=== PATIENT | male | born 1965 | race African-American/Black ===

== ENCOUNTER 2016-07-26 07:48 | Inpatient (IN) | payer MEDICARE, MEDICAID ==
[2016-07-26] MEDS ORDERED: FAMOTIDINE INJ/PF 20 MG/2 ML SDV IV ONE (08:02)
[2016-07-26] MEDS ORDERED: DIPHENHYDRAMINE HCL 50 MG/ML VIAL IV ONE (08:02)
[2016-07-26] MEDS ORDERED: METHYLPREDNISOLONE INJ 125 MG/2 ML SDV IV ONE (08:02)
[2016-07-26] MEDS ORDERED: NORMAL SALINE 1000 ML 1,000 ML IV ONE (08:03)
[2016-07-26] MEDS ORDERED: TRANEXAMIC ACID INJ/PF 1,000 MG/10 ML SDV IV PRN (08:41)
[2016-07-26 08:42] LABS: ABSOLUTE EOSINOPHILS # (AUTO) 0.1 10^3/uL (0.0-0.6); ABSOLUTE LYMPHOCYTES (AUTO) 2.5 10^3/uL (0.5-4.7); ABSOLUTE MONOCYTES (AUTO) 0.5 10^3/uL (0.1-1.4); ABSOLUTE NEUT (AUTO) 3.4 10^3/uL (1.7-8.2); BASOPHILS % (AUTO) 0.5 % (0-2); EOSINOPHILS % (AUTO) 2.1 % (0-6); HEMATOCRIT 41.5 % (37.9-51.0); HEMOGLOBIN 14.2 g/dL (13.5-17.0); HGB HCT DIFFERENCE 1.1; LYMPHOCYTES % (AUTO) 37.9 % (13-45); MEAN CORPUSCULAR HEMOGLOBIN 33.3 pg (27.0-33.4); MEAN CORPUSCULAR HGB CONC 34.2 g/dL (32.0-36.0); MEAN CORPUSCULAR VOLUME 97 fl (80-97); MONOCYTES % (AUTO) 7.5 % (3-13); RED BLOOD COUNT 4.26 10^6/uL (4.35-5.55); RED CELL DISTRIBUTION WIDTH 12.9 % (11.5-14.0); WHITE BLOOD COUNT 6.5 10^3/uL (4.0-10.5)
[2016-07-26] MEDS ORDERED: NORMAL SALINE 250 ML IV PRN ×3 (08:42→09:26)
[2016-07-26 08:50] LABS: PROTHROMBIN TIME 12.7 SEC (11.4-15.4)
--- NOTE | 2016-07-26 08:50 | ER Document Report ---
ED General - General Chief Complaint: Allergic Reaction Stated Complaint: POSSIBLE ALLEGIC REACTION TRAVEL OUTSIDE OF THE [place] 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 Patient has had intubations in the past because of the angioedema due to tongue swelling. Patient denies any recent or new medications. States he is currently on antihistamine and Singulair. Patient denies ever being on lisinopril. Upon evaluation patient does have a multiple voice. Patient is able to stick out stone I am not able to see tonsillar pillars are the arch of the soft palate uvula is obscured by the tongue but swelling is only unilateral right side. Patient states he is able to control his secretions. Pain with swelling started prior to arrival. Denies shortness of breath denies fevers - Related Data Allergies/Adverse Reactions: aluminum hydroxide [From Bufferin] Allergy (Verified 08/09/15 10:06) aspirin [Aspirin] Allergy (Verified 08/09/15 10:06) calcium carbonate [From Bufferin] Allergy (Verified 08/09/15 10:06) Coconut * [Coconut] Allergy (Verified 08/09/15 10:06) ibuprofen Allergy (Verified 08/09/15 10:06) latex [Latex] Allergy (Verified 08/09/15 10:06) Magnesium [From Bufferin] Allergy (Verified 08/09/15 10:06) peanut [Peanut] Allergy (Verified 08/09/15 10:06) Shellfish * [Shellfish] Allergy (Verified 08/09/15 10:06) Home Medications: Current Home Medications Benztropine Mesylate [Benztropine Mesylate 2 mg Tablet] 2 mg PO DAILY 07/26/16 [ History] Cetirizine HCl [Zyrtec 10 mg Tablet] 1 tab PO DAILY 07/26/16 [History] Citalopram Hydrobromide [Celexa 20 mg Tablet] 20 mg PO DAILY 07/26/16 [History] Haloperidol [Haldol 5 mg Tablet] 5 mg PO DAILY 07/26/16 [History] Montelukast Sodium 10 mg PO DAILY 07/26/16 [History] Olopatadine HCl [Pataday] 2.5 ml OP DAILYP PRN 07/26/16 [History] Past Medical History - Social History Smoking Status: Current Every Day Smoker Chew tobacco use (# tins/day): No Frequency of alcohol use: None Drug Abuse: None Family History: Reviewed & Not Pertinent Psychiatric Medical History: Reports: Hx Depression, Hx Schizophrenia Past Surgical History: Reports: Hx Tonsillectomy - Immunizations Immunizations up to date: Yes Hx Diphtheria, Pertussis, Tetanus Vaccination: Yes Hx Pneumococcal Vaccination: 04/16/00 Review of Systems - Review of Systems Constitutional: No symptoms reported EENT: Other - Tongue swelling Cardiovascular: No symptoms reported Respiratory: No symptoms reported Gastrointestinal: No symptoms reported Genitourinary: No symptoms reported Male Genitourinary: No symptoms reported Musculoskeletal: No symptoms reported Skin: No symptoms reported Hematologic/Lymphatic: No symptoms reported Neurological/Psychological: No symptoms reported -: Yes All other systems reviewed and negative Physical Exam - Vital signs Vitals: Pulse Resp Pulse Ox 81 21 H 99 07/26/16 08:12 07/26/16 08:12 07/26/16 08:12 Interpretation: Normal - General General appearance: Appears well, Alert - HEENT Head: Normocephalic, Atraumatic Eyes: Normal Conjunctiva: Normal Cornea: Normal Pupils: PERRL Ears: Normal Tympanic membrane: Normal Sinus: Normal Nasal: Normal Mouth/Lips: Other - Right-sided tongue swelling Pharynx: Other - Posterior pharynx is difficult to visualize at this time. did use a small tongue blade can see the uvula is no signs of edema. However patient has mallampti score of 3-4 - Respiratory Respiratory status: No respiratory distress Chest status: Nontender Breath sounds: Normal Chest palpation: Normal - Cardiovascular Rhythm: Regular Heart sounds: Normal auscultation Murmur: No - Abdominal Inspection: Normal Distension: No distension Bowel sounds: Normal Tenderness: Nontender Organomegaly: No organomegaly - Back Back: Normal, Nontender - Extremities General upper extremity: Normal inspection, Nontender, Normal color, Normal ROM , Normal temperature General lower extremity: Normal inspection, Nontender, Normal color, Normal ROM , Normal temperature, Normal weight bearing. No: Ross's sign - Neurological Neuro grossly intact: Yes Cognition: Normal Orientation: AAOx4 [place] Coma Scale Eye Opening: Spontaneous Jennifer Coma Scale Verbal: Oriented [place] Coma Scale Motor: Obeys Commands [place] Coma Scale Total: 15 Speech: Normal Motor strength normal: LUE, RUE, LLE, RLE Sensory: Normal - Psychological Associated symptoms: Normal affect, Normal mood - Skin Skin Temperature: Warm Skin Moisture: Dry Skin Color: Normal Course - Re-evaluation Re-evalutation: 07/26/16 08:46 Patient coming in today for angioedema. During his short ER stay here patient has unilateral swelling to the right side of the tongue did worsen anesthesia was called and evaluated for possible intubation. Anesthesiologist at bedside states no patient's while last time received FFP and transexemic acid with improvement however patient is continue with intubation. Also states last time patient was intubated in the OR. Currently trying to contact her hospitalist as there are phone system does not work. Hospitalist was paged overhead. 07/26/16 08:58 Hospitalist is at the bedside. Anesthesia team states that at this time they would not intubate patient would like to see if the medications and medical therapy provided will resolve the patient's symptoms. 07/26/16 09:01 07/26/16 10:34 07/26/16 14:16 Patient transferred to the ICU - Vital Signs Vital signs: Temp Pulse Resp BP Pulse Ox 98.7 F 80 16 142/88 H 98 07/26/16 11:42 07/26/16 11:42 07/26/16 11:42 07/26/16 11:42 07/26/16 11:42 - Laboratory Result Diagrams: 07/26/16 08:25 07/26/16 08:25 Laboratory results interpreted by me: 07/26/16 07/26/16 08:25 08:25 RBC 4.26 L Sodium 145.4 H Chloride 108 H Discharge - Discharge Clinical Impression: Tongue swelling, Hereditary angioedema Condition: Good Disposition: HOME, SELF-CARE Admitting Provider: [place] [facility] Unit Admitted: ICU
[2016-07-26 08:51] LABS: PARTIAL THROMBOPLASTIN TIME 25.1 SEC (23.5-35.8)
[2016-07-26] MEDS ORDERED: RACEPINEPHRINE HCL 2.25% NEB 0.5 ML AMPUL NEB ONE ×2 (08:55)
[2016-07-26 09:06] LABS: ALANINE AMINOTRANSFERASE 41 U/L (21-72); ALBUMIN 4.5 g/dL (3.5-5.0); ALKALINE PHOSPHATASE 68 U/L (38-126); ANION GAP 10 (5-19); ASPARTATE AMINO TRANSFERASE 40 U/L (17-59); BILIRUBIN,DIRECT 0.2 mg/dL (0.0-0.4); BILIRUBIN,TOTAL 0.6 mg/dL (0.2-1.3); CALCIUM 9.7 mg/dL (8.4-10.2); CARBON DIOXIDE 27 mmol/L (22-30); CHLORIDE 108 mmol/L (98-107); CREATININE RESULT 0.89 mg/dL (0.52-1.25); GLUCOSE 96 mg/dL (75-110); LIPASE 62.3 U/L (23-300); SODIUM 145.4 mmol/L (137-145); TOTAL PROTEIN 7.9 g/dL (6.3-8.2)
[2016-07-26 09:15] LABS: BLOOD UREA NITROGEN 12 mg/dL (7-20)
--- NOTE | 2016-07-26 10:09 | PDOC H&P ---
History of Present Illness Admission Date/PCP: 07/26/16 09:39 CANDIE RICHARDSON MD [facility] [facility] Patient complains of: "Swelling of the tongue and feeling pills stuck in the throat since 7:30 AM" History of Present Illness: SHANNAN CASTLE is a 51 year old male With a past history of recurrent angioedema presented to the ED with a swollen tongue and some hoarseness of is always Patient had prior episodes and prior intubation; is currently followed by Dr. Nunez in [place]; and has been treated for hereditary angioedema Mother states that since his treatment was initiated rate recurrent episodes has decreased Upon initial evaluation patient has swelling of this neck, mild swelling of the right side of his tongue He can talk but his speech is a little difficult; he manages his saliva and has no stridor Anesthesia was consulted; and it was felt that at this stage patient will be treated medically and watched closely Intubation was to be deferred Surgical consult was obtained Past Medical History GI Medical History: Reports: Gastroesophageal Reflux Disease Psychiatric Medical History: Reports: Depression, Other - Schizophrenia Past Surgical History Past Surgical History: Reports: Tonsillectomy Social History Smoking Status: Current Every Day Smoker Frequency of Alcohol Use: Occasional Hx Recreational Drug Use: No - unknown Drugs: None Hx Prescription Drug Abuse: No - Advance Directive Resuscitation Status: Full Code Surrogate healthcare decision maker:: Mother Family History Family History: Reviewed & Not Pertinent Parental Family History Reviewed: Yes Children Family History Reviewed: Yes Sibling(s) Family History Reviewed.: Yes Medication/Allergy Home Medications: Citalopram Hydrobromide [Celexa 10 mg Tablet] 10 mg PO DAILY 09/03/11 Haloperidol [Haldol 5 mg Tablet] 5 mg PO DAILY 09/03/11 Epinephrine [Epipen 2-Darinel] 0.3 mg IM ASDIR PRN #1 kit 07/19/15 Haloperidol Decanoate [Haldol Decan (Monthly) 100 mg/ml Inj 1 ml] 100 mg IM [id number] 08/04/15 Diphenhydramine HCl [Benadryl] 25 mg PO QHS #30 capsule 08/10/15 Famotidine [Pepcid 20 mg Tablet] 20 mg PO BID #60 tablet 08/10/15 Montelukast Sodium [Singulair 10 mg Tablet] 10 mg PO QHS #30 tablet 08/10/15 Prednisone 20 mg PO ASDIR PRN #50 tablet 08/10/15 Allergies/Adverse Reactions: aluminum hydroxide [From Bufferin] Allergy (Verified 08/09/15 10:06) aspirin [Aspirin] Allergy (Verified 08/09/15 10:06) calcium carbonate [From Bufferin] Allergy (Verified 08/09/15 10:06) Coconut * [Coconut] Allergy (Verified 08/09/15 10:06) ibuprofen Allergy (Verified 08/09/15 10:06) latex [Latex] Allergy (Verified 08/09/15 10:06) Magnesium [From Bufferin] Allergy (Verified 08/09/15 10:06) peanut [Peanut] Allergy (Verified 08/09/15 10:06) Shellfish * [Shellfish] Allergy (Verified 08/09/15 10:06) Review of Systems Constitutional: ABSENT: chills, fever(s), headache(s), weight gain, weight loss Eyes: ABSENT: visual disturbances Ears: ABSENT: hearing changes Nose, Mouth, and Throat: PRESENT: as per HPI Cardiovascular: ABSENT: chest pain, dyspnea on exertion, edema, orthropnea, palpitations Respiratory: ABSENT: cough, hemoptysis Gastrointestinal: ABSENT: abdominal pain, constipation, diarrhea, hematemesis, hematochezia, nausea, vomiting Genitourinary: ABSENT: dysuria, hematuria Musculoskeletal: ABSENT: joint swelling Integumentary: PRESENT: other - Swelling of the face neck Neurological: ABSENT: abnormal gait, abnormal speech, confusion, dizziness, focal weakness, syncope Psychiatric: ABSENT: anxiety, depression, homidical ideation, suicidal ideation Endocrine: ABSENT: cold intolerance, heat intolerance, polydipsia, polyuria Hematologic/Lymphatic: ABSENT: easy bleeding, easy bruising Allergic/Immunologic: PRESENT: as per HPI Physical Exam Vital Signs: Temp Pulse Resp BP Pulse Ox 98 07/26/16 08:52 General appearance: PRESENT: no acute distress, well-developed, well-nourished Head exam: PRESENT: atraumatic, normocephalic Eye exam: PRESENT: conjunctiva pink, EOMI, PERRLA. ABSENT: scleral icterus Ear exam: PRESENT: normal external ear exam Mouth exam: PRESENT: moist, tongue midline, other - edema right side of the tongue Edema of the lips Neck exam: PRESENT: other - Edema of the neck Swelling submandibular areas. ABSENT: carotid bruit, JVD, lymphadenopathy, thyromegaly Respiratory exam: PRESENT: clear to auscultation gonsalo. ABSENT: rales, rhonchi, wheezes Cardiovascular exam: PRESENT: RRR. ABSENT: diastolic murmur, rubs, systolic murmur Pulses: PRESENT: normal dorsalis pedis pul Vascular exam: PRESENT: normal capillary refill GI/Abdominal exam: PRESENT: normal bowel sounds, soft. ABSENT: distended, guarding, mass, organolmegaly, rebound, tenderness Rectal exam: PRESENT: deferred Extremities exam: PRESENT: full ROM. ABSENT: calf tenderness, clubbing, pedal edema Neurological exam: PRESENT: alert, awake, oriented to person, oriented to place , oriented to time, oriented to situation, CN II-XII grossly intact. ABSENT: motor sensory deficit Psychiatric exam: PRESENT: appropriate affect, normal mood. ABSENT: homicidal ideation, suicidal ideation Skin exam: PRESENT: dry, intact, warm. ABSENT: cyanosis, rash Results Laboratory Results: Labs- All tests 24 hr 07/26/16 07/26/16 07/26/16 08:25 08:25 08:25 WBC 6.5 RBC 4.26 L Hgb 14.2 Hct 41.5 MCV 97 MCH 33.3 MCHC 34.2 RDW 12.9 Plt Count 360 Seg Neutrophils % 52.0 Lymphocytes % 37.9 Monocytes % 7.5 Eosinophils % 2.1 Basophils % 0.5 Absolute Neutrophils 3.4 Absolute Lymphocytes 2.5 Absolute Monocytes 0.5 Absolute Eosinophils 0.1 Absolute Basophils 0.0 PT 12.7 INR 0.92 APTT 25.1 Sodium 145.4 H Potassium 4.0 Chloride 108 H Carbon Dioxide 27 Anion Gap 10 BUN 12 Creatinine 0.89 Est GFR ( Amer) > 60 Est GFR (Non-Af Amer) > 60 Glucose 96 Calcium 9.7 Total Bilirubin 0.6 Direct Bilirubin 0.2 Indirect Bilirubin Not Reportable Neonat Total Bilirubin Not Reportable AST 40 ALT 41 Alkaline Phosphatase 68 Total Protein 7.9 Albumin 4.5 Lipase 62.3 Blood Type Antibody Screen 07/26/16 09:05 WBC RBC Hgb Hct MCV MCH MCHC RDW Plt Count Seg Neutrophils % Lymphocytes % Monocytes % Eosinophils % Basophils % Absolute Neutrophils Absolute Lymphocytes Absolute Monocytes Absolute Eosinophils Absolute Basophils PT INR APTT Sodium Potassium Chloride Carbon Dioxide Anion Gap BUN Creatinine Est GFR ( Amer) Est GFR (Non-Af Amer) Glucose Calcium Total Bilirubin Direct Bilirubin Indirect Bilirubin Neonat Total Bilirubin AST ALT Alkaline Phosphatase Total Protein Albumin Lipase Blood Type Cancelled Antibody Screen Cancelled Assessment & Plan - Diagnosis (1) Hereditary angioedema Is this a current diagnosis for this admission?: Yes (2) Tongue swelling Is this a current diagnosis for this admission?: Yes - Time Time Spent with patient: Patient was treated with conventional medication for insurance angioedema including racemic epinephrine steroids and Benadryl Pepcid He was also given Transiminic acid and 2 units of FFP He remains stable at this time Anesthesia consult was obtained and they felt that we should defer intubation Surgical consult with was obtained that he be ready to perform tracheostomy if emergency occured Patient was admitted to intensive care unit Time Spent: Greater than 70 Minutes - Inpatient Certification Based on my medical assessment, after consideration of the patient's comorbidities, presenting symptoms, or acuity I expect that the services needed warrant INPATIENT care.: Yes I certify that my determination is in accordance with my understanding of Medicare's requirements for reasonable and necessary INPATIENT services [42 CFR 412.3e].: Yes Medical Necessity: Need Close Monitoring Due to Risk of Patient Decompensation, Need For Continuous Telemetry Monitoring, Risk of Complication if Not Cared For in Hospital
[2016-07-26] MEDS ORDERED: TRANEXAMIC ACID INJ/PF 1,000 MG/10 ML SDV IV SCH (10:15)
[2016-07-26] MEDS ORDERED: METHYLPREDNISOLONE INJ 125 MG/2 ML SDV IV SCH (12:00)
--- NOTE | 2016-07-26 13:48 | CONSULTATION REPORT E ---
Consultation Report NAME: SHANNAN CASTLE : 1965 AGE: 51Y DATE: 07/26/2016 610 A TO: TALI VALDERRAMA M.D. FROM: Requesting Physician REASON FOR CONSULTATION: Patient with angioedema of the tongue. Medicine requests standby for possible tracheostomy. HISTORY: This is a 51-year-old male with recurrent angioedema. The last episode was about 2 years ago where he needed to be intubated. He has a strong hereditary angioedema history and is being followed by Dr. Nunez in [place]. Mother claims that since his treatment was initiated, these recurrent episodes have decreased. PAST HISTORY: 1. History of recurrent angioedema of the tongue. 2. GERD. 3. History of depression. 4. Schizophrenia. PAST SURGICAL HISTORY: Tonsillectomy. SOCIAL HISTORY: Every day smoker, occasional ethanol use. No history of recreational drug use. FAMILY HISTORY: Positive for hereditary angioedema. MEDICATIONS: Multiple medications at home, as was listed in his chart. ALLERGIES: MULTIPLE ALLERGIES: 1. ASPIRIN. 2. ALUMINUM HYDROXIDE. 3. COCONUT. 4. IBUPROFEN. 5. LATEX. 6. PEANUT ALLERGY. 7. SHELLFISH. REVIEW OF SYSTEMS: GENERAL: As in HPI. Denies any chills, fever, headaches. No visual problems. No hearing problems. HEENT: As in HPI. Patient has some difficulty swallowing pills and has some difficulty saying words at this time. RESPIRATORY: No cough. No hemoptysis. GASTROINTESTINAL: No diarrhea. No constipation. GENITOURINARY: No dysuria. MUSCULOSKELETAL: No joint swelling. INTEGUMENTARY: Swelling of the right side of the face. NEUROLOGIC: No confusion or dizziness. PSYCHIATRIC: Absent anxiety or depression. ENDOCRINE: No heat or cold intolerance. No polydipsia. HEMATOLOGIC/LYMPHATIC: No easy bleeding or bruising. ALLERGIES/IMMUNOLOGIC: As in HPI. PHYSICAL EXAMINATION: GENERAL: A well-developed, well-nourished, 51-year-old male, alert and oriented in no apparent acute distress. HEENT: The right side of the tongue is somewhat swollen. NECK: Supple. There is minimal edema of the neck. LUNGS: Clear. HEART: Regular sinus rhythm. ABDOMEN: Soft, nontender. EXTREMITIES: No edema. IMPRESSION: Angioedema that appears to be subsiding at this time. However, we will be available if patient needs emergency tracheostomy. DICTATING PHYSICIAN: TALI VALDERRAMA M.D. [id number] PHY#: [id number] ID: [id number] JOB#: [id number] ACCT: [id number] cc:TALI VALDERRAMA M.D. >
[2016-07-26] MEDS: FAMOTIDINE INJ/PF 20 MG/2 ML SDV IV SCH ×2 (14:15→21:05)
[2016-07-26] MEDS: DIPHENHYDRAMINE HCL 50 MG/ML VIAL IV SCH ×2 (14:57→20:48)
[2016-07-26] MEDS: METHYLPREDNISOLONE INJ 125 MG/2 ML SDV IV SCH ×2 (14:57→20:48)
[2016-07-26] MEDS: TRANEXAMIC ACID INJ/PF 1,000 MG/10 ML SDV IV SCH ×2 (14:57→20:49)
[2016-07-27] MEDS: DIPHENHYDRAMINE HCL 50 MG/ML VIAL IV SCH ×2 (02:26→09:02)
[2016-07-27] MEDS: METHYLPREDNISOLONE INJ 125 MG/2 ML SDV IV SCH ×2 (02:26→09:02)
[2016-07-27] MEDS: TRANEXAMIC ACID INJ/PF 1,000 MG/10 ML SDV IV SCH ×2 (02:27→09:02)
[2016-07-27 07:34] LABS: COMPLEMENT C4 30 mg/dL (14-44)
[2016-07-27] MEDS: FAMOTIDINE INJ/PF 20 MG/2 ML SDV IV SCH (09:02)
[2016-07-27 11:08] VITALS: BP 132/72
[2016-07-27 14:41] LABS: COMPLEMENT TOTAL (CH50) >60 U/mL (42-60)
[2016-07-28 08:57] LABS: C1 ESTERASE INHIBITOR 34 mg/dL (21-39)
--- NOTE | 2016-07-29 16:54 | PDOC DISCHARGE SUMMARY ---
General - Admit/Disc Date/PCP Admission Date/Primary Care Provider: 07/26/16 09:14 CANDIE RICHARDSON MD Discharge Date: 07/27/16 - Discharge Diagnosis (1) Hereditary angioedema Is this a current diagnosis for this admission?: Yes (2) Tongue swelling Is this a current diagnosis for this admission?: Yes - Additional Information Resuscitation Status: Full Code Discharge Diet: As Tolerated Discharge Activity: Activity As Tolerated Home Medications: Benztropine Mesylate [Benztropine Mesylate 2 mg Tablet] 2 mg PO QHS 07/26/16 Cetirizine HCl [Zyrtec 10 mg Tablet] 1 tab PO DAILY 07/26/16 Citalopram Hydrobromide [Celexa 20 mg Tablet] 20 mg PO BID 07/26/16 Haloperidol Decanoate [Haldol Decan (Monthly) 100 mg/ml Inj 1 ml] 50 mg IM [id number] 07/26/16 Haloperidol [Haldol 5 mg Tablet] 5 mg PO DAILY 07/26/16 Montelukast Sodium [Singulair 10 mg Tablet] 10 mg PO DAILY 07/26/16 Diphenhydramine HCl [Benadryl] 50 mg PO Q4H PRN #30 capsule 07/27/16 Famotidine [Pepcid 40 mg Tablet] 40 mg PO PRN PRN #10 tablet 07/27/16 Prednisone 60 mg PO DAILY #30 tablet 07/27/16 History of Present Illness Patient complains of: swelling toongue , fullness throat History of Present Illness: SHANNAN CASTLE is a 51 year old male With a past history of recurrent angioedema presented to the ED with a swollen tongue and some hoarseness of is always Patient had prior episodes and prior intubation; is currently followed by Dr. Nunez in [place]; and has been treated for hereditary angioedema Mother states that since his treatment was initiated rate recurrent episodes has decreased Upon initial evaluation patient has swelling of this neck, mild swelling of the right side of his tongue He can talk but his speech is a little difficult; he manages his saliva and has no stridor Anesthesia was consulted; and it was felt that at this stage patient will be treated medically and watched closely Intubation was to be deferred Surgical consult was obtained Hospital Course Hospital Course: Patient was treated with epinephrine, steroids , benadryl , pepcid Racemic epinephrine , 2 units FFP and Tranexamic acid 1 g IV were also administered Swelling resolved Patient was discharged next morning totally asymptomatic Physical Exam Vital Signs: Temp Pulse Resp BP Pulse Ox 98.2 F 75 18 132/72 H 99 07/27/16 11:05 07/27/16 11:05 07/27/16 11:05 07/27/16 11:05 07/27/16 11:05 Intake & Output 07/28/16 07/29/16 07/30/16 00:59 00:59 00:59 Intake Total 951 Output Total 0 Balance 951 General appearance: PRESENT: no acute distress, well-developed, well-nourished Head exam: PRESENT: atraumatic, normocephalic Eye exam: PRESENT: conjunctiva pink, EOMI, PERRLA. ABSENT: scleral icterus Ear exam: PRESENT: normal external ear exam Mouth exam: PRESENT: moist, tongue midline Neck exam: ABSENT: carotid bruit, JVD, lymphadenopathy, thyromegaly Respiratory exam: PRESENT: clear to auscultation gonsalo. ABSENT: rales, rhonchi, wheezes Cardiovascular exam: PRESENT: RRR. ABSENT: diastolic murmur, rubs, systolic murmur Pulses: PRESENT: normal dorsalis pedis pul Vascular exam: PRESENT: normal capillary refill GI/Abdominal exam: PRESENT: normal bowel sounds, soft. ABSENT: distended, guarding, mass, organolmegaly, rebound, tenderness Rectal exam: PRESENT: deferred Extremities exam: PRESENT: full ROM. ABSENT: calf tenderness, clubbing, pedal edema Neurological exam: PRESENT: alert, awake, oriented to person, oriented to place , oriented to time, oriented to situation, CN II-XII grossly intact. ABSENT: motor sensory deficit Psychiatric exam: PRESENT: appropriate affect, normal mood. ABSENT: homicidal ideation, suicidal ideation Skin exam: PRESENT: dry, intact, warm. ABSENT: cyanosis, rash Results Laboratory Results: 07/26/16 08:25 07/26/16 08:25 Blood Type A POSITIVE 07/26/16 09:45 Antibody Screen NEGATIVE 07/26/16 09:45 MCV 97 fl (80-97) 07/26/16 08:25 MCH 33.3 pg (27.0-33.4) 07/26/16 08:25 MCHC 34.2 g/dL (32.0-36.0) 07/26/16 08:25 RDW 12.9 % (11.5-14.0) 07/26/16 08:25 Seg Neutrophils % 52.0 % (42-78) 07/26/16 08:25 Lymphocytes % 37.9 % (13-45) 07/26/16 08:25 Monocytes % 7.5 % (3-13) 07/26/16 08:25 Eosinophils % 2.1 % (0-6) 07/26/16 08:25 Basophils % 0.5 % (0-2) 07/26/16 08:25 Absolute Neutrophils 3.4 10^3/uL (1.7-8.2) 07/26/16 08:25 Absolute Lymphocytes 2.5 10^3/uL (0.5-4.7) 07/26/16 08:25 Absolute Monocytes 0.5 10^3/uL (0.1-1.4) 07/26/16 08:25 Absolute Eosinophils 0.1 10^3/uL (0.0-0.6) 07/26/16 08:25 Absolute Basophils 0.0 10^3/uL (0.0-0.2) 07/26/16 08:25 Chloride 108 mmol/L (98-107) H 07/26/16 08:25 Carbon Dioxide 27 mmol/L (22-30) 07/26/16 08:25 Anion Gap 10 (5-19) 07/26/16 08:25 Est GFR ( Amer) > 60 (>60) 07/26/16 08:25 Est GFR (Non-Af Amer) > 60 (>60) 07/26/16 08:25 Glucose 96 mg/dL (75-110) 07/26/16 08:25 Calcium 9.7 mg/dL (8.4-10.2) 07/26/16 08:25 Total Bilirubin 0.6 mg/dL (0.2-1.3) 07/26/16 08:25 AST 40 U/L (17-59) 07/26/16 08:25 ALT 41 U/L (21-72) 07/26/16 08:25 Alkaline Phosphatase 68 U/L (38-126) 07/26/16 08:25 Total Protein 7.9 g/dL (6.3-8.2) 07/26/16 08:25 Albumin 4.5 g/dL (3.5-5.0) 07/26/16 08:25 Lipase 62.3 U/L (23-300) 07/26/16 08:25 Plan Discharge Plan: discharged home instructed to use epi pen and take benadryl 50 mg, prednisone 60 mg and pepcid 40 mg po at once if angioedema reccurs - and call 911- Time Spent: Greater than 30 Minutes
== END 2016-07-27 11:40 | disposition home or self-care (01) | DRG 642 ==
LOC: ER 07:48 → EH 09:14 → UNDOADMIN 09:39 → EH 09:39 → ICU 11:44 → 3N 21:50
PROVIDERS: ADMIT Emergency Medicine; ATTEND Emergency Medicine
PROC: 30233L1 Transfusion of Nonautologous Fresh Plasma into Peripheral Vein, Percutaneous Approach (ICD-10-PCS; principal; 2016-07-26)
DX: D84.1 Defects in the complement system (principal); K21.9 Gastro-esophageal reflux disease without esophagitis; F32.9 Major depressive disorder, single episode, unspecified; F20.9 Schizophrenia, unspecified; F17.210 Nicotine dependence, cigarettes, uncomplicated; Z79.899 Other long term (current) drug therapy; Z88.6 Allergy status to analgesic agent; Z91.040 Latex allergy status; Z91.018 Allergy to other foods; Z88.8 Allergy status to other drugs, medicaments and biological substances; Z91.010 Allergy to peanuts; Z91.013 Allergy to seafood
CPT/HCPCS: 36415; 36430; 80053; 83690; 85025; 85610; 85730; 86160; 86162; 86850; 86900; 86901; 96374; 96375; 99291; C1751; J1200; J2930; J3490; J7030; P9017; S0028

== ENCOUNTER 2016-08-09 00:05 | Emergency (ER) | payer MEDICARE, MEDICAID ==
[2016-08-09] MEDS ORDERED: METHYLPREDNISOLONE INJ 125 MG/2 ML SDV IV ONE (01:08)
[2016-08-09] MEDS ORDERED: FAMOTIDINE INJ/PF 20 MG/2 ML SDV IV ONE (01:08)
[2016-08-09] MEDS ORDERED: EPINEPHRINE INJ/PF 1 MG/1 ML AMPULE IM ONE (01:08)
[2016-08-09] MEDS ORDERED: DIPHENHYDRAMINE HCL 50 MG/ML VIAL IV ONE (01:09)
--- NOTE | 2016-08-09 01:48 | ER Document Report ---
ED Oral Problem - General Chief Complaint: Swelling of Tongue Stated Complaint: TONGUE SWELLING Notes: Patient is a 51-year-old male, past medical history hereditary angioedema, presents with 3 hours of left-sided tongue swelling. 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 He took his cetirizine and noticed that his tongue is decreasing in size. He was started on amoxicillin and Ridge a few days ago after dental procedure, but he has taken this medications in the past. He denies any throat swelling, stridor, nausea, vomiting, rash, difficulty breathing, fevers, chest pain or abdominal pain. TRAVEL OUTSIDE OF THE [place] IN LAST 30 DAYS: No - Related Data Allergies/Adverse Reactions: aluminum hydroxide [From Bufferin] Allergy (Verified 08/09/15 10:06) aspirin [Aspirin] Allergy (Verified 08/09/15 10:06) calcium carbonate [From Bufferin] Allergy (Verified 08/09/15 10:06) Coconut * [Coconut] Allergy (Verified 08/09/15 10:06) ibuprofen Allergy (Verified 08/09/15 10:06) latex [Latex] Allergy (Verified 08/09/15 10:06) Magnesium [From Bufferin] Allergy (Verified 08/09/15 10:06) peanut [Peanut] Allergy (Verified 08/09/15 10:06) Shellfish * [Shellfish] Allergy (Verified 08/09/15 10:06) Past Medical History - Social History Smoking Status: Unknown if Ever Smoked Chew tobacco use (# tins/day): No Frequency of alcohol use: None Drug Abuse: None Family History: Reviewed & Not Pertinent GI Medical History: Reports: Hx Gastroesophageal Reflux Disease Psychiatric Medical History: Reports: Hx Depression, Hx Schizophrenia Past Surgical History: Reports: Hx Tonsillectomy - Immunizations Immunizations up to date: Yes Hx Diphtheria, Pertussis, Tetanus Vaccination: Yes Hx Pneumococcal Vaccination: 04/16/00 Review of Systems - Review of Systems Notes: REVIEW OF SYSTEMS: CONSTITUTIONAL: -fevers, -chills EENT: -eye pain, -difficulty swallowing, -nasal congestion, +left-sided tongue swelling CARDIOVASCULAR:-chest pain, -syncope. RESPIRATORY: -cough, -SOB GASTROINTESTINAL: -abdominal pain, - nausea, -vomiting, -diarrhea GENITOURINARY: -dysuria, -hematuria MUSCULOSKELETAL: -back pain, -neck pain SKIN: -rash or skin lesions. HEMATOLOGIC: -easy bruising or bleeding. LYMPHATIC: -swollen, enlarged glands. NEUROLOGICAL: -altered mental status or loss of consciousness, -headache, - neurologic symptoms PSYCHIATRIC: -anxiety, -depression. ALL OTHER SYSTEMS REVIEWED AND NEGATIVE. Physical Exam - Vital signs Vitals: Temp Pulse Resp BP Pulse Ox 98.5 F 74 16 128/77 H 99 08/09/16 00:12 08/09/16 00:12 08/09/16 00:12 08/09/16 00:12 08/09/16 00:12 - Notes Notes: PHYSICAL EXAMINATION: GENERAL: Well-appearing, well-nourished and in no acute distress. HEAD: Atraumatic, normocephalic. EYES: Pupils equal round and reactive to light, extraocular movements intact, sclera anicteric, conjunctiva are normal. ENT: Mild swelling of the left side of his tongue, nares patent, oropharynx clear without exudates. No swelling of the posterior pharynx and no stridor. Moist mucous membranes. NECK: Normal range of motion, supple without lymphadenopathy LUNGS: Breath sounds clear to auscultation bilaterally and equal. No wheezes rales or rhonchi. HEART: Regular rate and rhythm without murmurs ABDOMEN: Soft, nontender, normoactive bowel sounds. No guarding, no rebound. No masses appreciated. EXTREMITIES: Normal range of motion, no pitting or edema. No cyanosis. NEUROLOGICAL: Cranial nerves grossly intact. Normal speech, normal gait. Normal sensory, motor, and reflex exams. PSYCH: Normal mood, normal affect. SKIN: Warm, Dry, normal turgor, no rashes or lesions noted. Course - Re-evaluation Re-evalutation: Patient rechecked multiple times on the emergency room. After epi, steroids, Benadryl and Pepcid, patient's left-sided tongue swelling has decreased in size. He has had no progression of any swelling while in the emergency room and his airway is still patent. At this time, do not suspect progressive airway edema. He has prednisone at home and is instructed to take daily for the next 5 days and use Benadryl every 6 hours. Given strict return precautions and he understands. - Vital Signs Vital signs: Temp Pulse Resp BP Pulse Ox 98.4 F 74 16 125/77 97 08/09/16 03:25 08/09/16 03:25 08/09/16 03:25 08/09/16 03:25 08/09/16 03:25 Discharge - Discharge Clinical Impression: Mild tongue swelling Condition: Stable Disposition: HOME, SELF-CARE Additional Instructions: ACUTE ALLERGIC REACTION: Your symptoms are due to an allergic reaction. Allergy can cause hives, swelling of the hands, feet, and face, hoarseness, and difficulty swallowing or breathing. It may be due to exposure to medication, animal dander, foods, infection, or insect bites. Medication is a common cause, even when prior use of this same medication caused no problems. Acute treatment may include adrenalin and antihistamines. Usually, the specific allergic agent can't be identified unless repeated episodes occur. Home treatment includes the following: (1) Stop any suspicious medications. This will be discussed with you. (2) Oral antihistamines for the next four to five days. Example, diphenhydramine (Benadryl) every four hours. (3) You may also use cimetidine (Tagamet), ranitidine (Zantac), or famotidine ( Pepcid) every four hours if diphenhydramine is not controlling itching and hives. (4) Avoid aspirin until the hives completely disappear. (5) Avoid hot baths or showers until the hives are completely gone. Call the doctor if faintness, difficulty swallowing, tightness in the chest , or wheezing occurs. EPINEPHRINE: An injection of epinephrine (also called adrenalin) is used to treat allergic reactions, asthma, and some other medical conditions. It is a stimulant medication that consticts blood vessels, relaxes smooth muscles such as in the bronchioles of the lung, elevates blood pressure, and increases heart rate. It can temporarily make you feel very nervous and shakey, but it's affects last only a short time, about 15 to 30 minutes at most. STEROID MEDICATION INJECTION: You have been given an injection of medicine of the cortisone/steroid class. This medication is used to control inflammation or allergy. It is often continued as a pill for a short period of time, until the acute process subsides. There are usually no side effects from short-term use of cortisone-like medications. Some persons feel an increased sense of well-being and are not sleepy at bedtime. Long-term use of cortisone medications is best avoided, unless required for a severe condition. If your condition does not remit, or relapses after the course of corticosteroid medication, you should consult your physician. STEROID MEDICATION: You have been given a medicine of the cortisone/steroid class. This medication is used to control inflammation or allergy. It is usually only given for a short period of time, until the acute process subsides. There are usually no side effects from short-term use of cortisone-like medications. Some persons feel an increased sense of well-being and are not sleepy at bedtime. Long-term use of cortisone medications is best avoided, unless required for a severe condition. If your condition does not remit, or relapses after the course of corticosteroid medication, you should consult your physician. ACID-SUPPRESSING MEDICATION: You have a prescription for medicine which reduces the stomach's secretion of acid. Examples include Zantac, Tagament, and Pepcid. These drugs are often used to allow healing of ulcers or esophagitis. They may be needed to prevent recurrence of ulcers in some patients, or to prevent damage from acid reflux in the esophagus. Take all medication as prescribed, even after the pain is gone. Regular antacids may be added as needed if you have symptoms while taking this medicine. These medications sometimes are prescribed for allergic reactions because they have anti-histaminic effects and relieve the rash and itching of the reaction. There are usually no side effects from this medication. But, in rare cases and particularly in the elderly, serious problems can occur. Contact your doctor if there is fever, rash, hallucinations, confusion, or unusual bruising. Contact your doctor at once if you develop lightheadedness, black or bloody stool, or bloody vomitus. ANTIHISTAMINES: An antihistamine has been given and/or prescribed to control your symptoms. Antihistamines are used for many reasons, including itching, watering eyes, runny nose, allergic swelling, hives, and insect stings. Antihistamines may cause drowsiness, especially with the first dose. Do not operate machinery or drive while under the effects of the medication. Other common side effects include dry mouth and eyes. In older persons, antihistamines can occasionally cause urinary retention, constipation, and trouble focusing the eyes. Do not combine the medication with alcohol, or with any other medication without talking to your doctor. USE OF DIPHENHYDRAMINE: The use of diphenhydramine (Benadryl) has been recommended to control allergic symptoms. The 25 mg strength is available over- the-counter, as well as the elixir. This antihistamine is used for many symptoms. It's useful for itching, watering eyes and nose, allergic swelling, hives, and insect stings. The medication can be repeated four times daily. Age Elixir (12.5 mg/tsp) 25 mg pill 2-3 yr 1/2 tsp 4-8 yr 1 tsp 9-14 yr 2 tsp one tab adult 1-2 tabs Antihistamines may cause drowsiness, especially with the first dose. Do not operate machinery or drive while under the effects of the medication. Do not combine the medication with alcohol, or with any other medication without talking to your doctor. FOLLOW-UP CARE: If you have been referred to a physician for follow-up care, call the physician s office for an appointment as you were instructed or within the next two days. If you experience worsening or a significant change in your symptoms, notify the physician immediately or return to the Emergency Department at any time for re-evaluation. Referrals: CANDIE RICHARDSON MD [Primary Care Provider] - Follow up as needed
[2016-08-09 03:28] VITALS: BP 125/77
== END 2016-08-09 03:28 | disposition home or self-care (01) ==
LOC: ER 00:05
DX: R22.0 Localized swelling, mass and lump, head (principal); K21.9 Gastro-esophageal reflux disease without esophagitis; Z91.040 Latex allergy status; Z88.6 Allergy status to analgesic agent; Z91.010 Allergy to peanuts; Z91.013 Allergy to seafood
CPT/HCPCS: 99283; 96372; 96374; 96375; J1200; J0171; J2930; S0028

== ENCOUNTER 2017-03-10 08:56 | Emergency (ER) | payer MEDICARE, MEDICAID ==
[2017-03-10] MEDS ORDERED: METHYLPREDNISOLONE INJ 125 MG/2 ML SDV IV ONE (09:17)
[2017-03-10] MEDS ORDERED: FAMOTIDINE INJ/PF 20 MG/2 ML SDV IV ONE (09:17)
[2017-03-10] MEDS ORDERED: DIPHENHYDRAMINE HCL 50 MG/ML VIAL IV ONE (09:17)
[2017-03-10] MEDS ORDERED: NORMAL SALINE 1000 ML 1,000 ML IV ONE (09:18)
--- NOTE | 2017-03-10 09:45 | ER Document Report ---
ED Allergic Reaction - General Chief Complaint: Allergic Reaction Stated Complaint: POSSIBLE ALLERGIC REACTION Time Seen by Provider: 03/10/17 09:17 Notes: The patient is a 51-year-old male, past medical history hereditary angioedema, schizophrenia, presents after feeling like his posterior pharynx is swelling and he is having mild tongue swelling. He used his EpiPen and call 911. EMS provided him with another dose of IM epinephrine and he feels much better. Patient follows at [facility] said that his prior angioedema events are much less common. He takes Haldol with Cogentin and denies any new medications , new foods, difficulty swallowing, stridor, shortness of breath, nausea, vomiting, rash, abdominal pain or headache. TRAVEL OUTSIDE OF THE [place] IN LAST 30 DAYS: No - Related Data Allergies/Adverse Reactions: aluminum hydroxide [From Bufferin] Allergy (Verified 03/10/17 09:15) aspirin [Aspirin] Allergy (Verified 03/10/17 09:15) calcium carbonate [From Bufferin] Allergy (Verified 03/10/17 09:15) Coconut * [Coconut] Allergy (Verified 03/10/17 09:15) ibuprofen Allergy (Verified 03/10/17 09:15) latex [Latex] Allergy (Verified 03/10/17 09:15) Magnesium [From Bufferin] Allergy (Verified 03/10/17 09:15) peanut [Peanut] Allergy (Verified 03/10/17 09:15) Shellfish * [Shellfish] Allergy (Verified 03/10/17 09:15) Past Medical History - General Information source: Patient - Social History Smoking Status: Current Every Day Smoker Chew tobacco use (# tins/day): No Family History: Reviewed & Not Pertinent Patient has suicidal ideation: No Patient has homicidal ideation: No Renal/ Medical History: Denies: Hx Peritoneal Dialysis GI Medical History: Reports: Hx Gastroesophageal Reflux Disease Psychiatric Medical History: Reports: Hx Depression, Hx Schizophrenia Past Surgical History: Reports: Hx Tonsillectomy - Immunizations Immunizations up to date: Yes Hx Diphtheria, Pertussis, Tetanus Vaccination: Yes Hx Pneumococcal Vaccination: 04/16/00 Review of Systems - Review of Systems Notes: REVIEW OF SYSTEMS: CONSTITUTIONAL: -fevers, -chills EENT: -eye pain, -difficulty swallowing, -nasal congestion CARDIOVASCULAR:-chest pain, -syncope. RESPIRATORY: -cough, -SOB GASTROINTESTINAL: -abdominal pain, -nausea, -vomiting, -diarrhea GENITOURINARY: -dysuria, -hematuria MUSCULOSKELETAL: -back pain, -neck pain SKIN: -rash or skin lesions. HEMATOLOGIC: -easy bruising or bleeding. LYMPHATIC: -swollen, enlarged glands. NEUROLOGICAL: -altered mental status or loss of consciousness, -headache, - neurologic symptoms PSYCHIATRIC: -anxiety, -depression. ALL OTHER SYSTEMS REVIEWED AND NEGATIVE. Physical Exam - Vital signs Vitals: Resp Pulse Ox 21 H 99 03/10/17 09:37 03/10/17 09:37 - Notes Notes: PHYSICAL EXAMINATION: GENERAL: Well-appearing, well-nourished and in no acute distress. HEAD: Atraumatic, normocephalic. EYES: Pupils equal round and reactive to light, extraocular movements intact, sclera anicteric, conjunctiva are normal. ENT: nares patent, oropharynx clear without exudates. Moist mucous membranes. No swelling in oropharynx. NECK: Normal range of motion, supple without lymphadenopathy, no stridor. LUNGS: Breath sounds clear to auscultation bilaterally and equal. No wheezes rales or rhonchi. HEART: Regular rate and rhythm without murmurs ABDOMEN: Soft, nontender, normoactive bowel sounds. No guarding, no rebound. No masses appreciated. EXTREMITIES: Normal range of motion, no pitting or edema. No cyanosis. NEUROLOGICAL: Cranial nerves grossly intact. Normal speech, normal gait. Normal sensory and motor exams. PSYCH: Normal mood, normal affect. SKIN: Warm, Dry, normal turgor, no rashes or lesions noted. Course - Re-evaluation Re-evalutation: On arrival to the ER, patient is currently asymptomatic. His airway is patent and he has no respiratory distress. Pt monitored several hours without return of his symptoms he still asymptomatic. Multiple repeat exams show a patent airway without respiratory distress or stridor. He is requesting discharge home. 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 Given very strict return precautions and he understands. - Vital Signs Vital signs: Temp Pulse Resp BP Pulse Ox 21 H 99 03/10/17 09:37 03/10/17 09:37 Discharge - Discharge Clinical Impression: Angioedema Qualifiers: Encounter type: initial encounter Qualified Code(s): T78.3XXA - Angioneurotic edema, initial encounter Condition: Good Disposition: HOME, SELF-CARE Additional Instructions: ACUTE ALLERGIC REACTION: Your symptoms are due to an allergic reaction. Allergy can cause hives, swelling of the hands, feet, and face, hoarseness, and difficulty swallowing or breathing. It may be due to exposure to medication, animal dander, foods, infection, or insect bites. Medication is a common cause, even when prior use of this same medication caused no problems. Acute treatment may include adrenalin and antihistamines. Usually, the specific allergic agent can't be identified unless repeated episodes occur. Home treatment includes the following: (1) Stop any suspicious medications. This will be discussed with you. (2) Oral antihistamines for the next four to five days. Example, diphenhydramine (Benadryl) every four hours. (3) You may also use cimetidine (Tagamet), ranitidine (Zantac), or famotidine ( Pepcid) every four hours if diphenhydramine is not controlling itching and hives. (4) Avoid aspirin until the hives completely disappear. (5) Avoid hot baths or showers until the hives are completely gone. Call the doctor if faintness, difficulty swallowing, tightness in the chest , or wheezing occurs. EPINEPHRINE: An injection of epinephrine (also called adrenalin) is used to treat allergic reactions, asthma, and some other medical conditions. It is a stimulant medication that consticts blood vessels, relaxes smooth muscles such as in the bronchioles of the lung, elevates blood pressure, and increases heart rate. It can temporarily make you feel very nervous and shakey, but it's affects last only a short time, about 15 to 30 minutes at most. STEROID MEDICATION INJECTION: You have been given an injection of medicine of the cortisone/steroid class. This medication is used to control inflammation or allergy. It is often continued as a pill for a short period of time, until the acute process subsides. There are usually no side effects from short-term use of cortisone-like medications. Some persons feel an increased sense of well-being and are not sleepy at bedtime. Long-term use of cortisone medications is best avoided, unless required for a severe condition. If your condition does not remit, or relapses after the course of corticosteroid medication, you should consult your physician. STEROID MEDICATION: You have been given a medicine of the cortisone/steroid class. This medication is used to control inflammation or allergy. It is usually only given for a short period of time, until the acute process subsides. There are usually no side effects from short-term use of cortisone-like medications. Some persons feel an increased sense of well-being and are not sleepy at bedtime. Long-term use of cortisone medications is best avoided, unless required for a severe condition. If your condition does not remit, or relapses after the course of corticosteroid medication, you should consult your physician. ACID-SUPPRESSING MEDICATION: You have a prescription for medicine which reduces the stomach's secretion of acid. Examples include Zantac, Tagament, and Pepcid. These drugs are often used to allow healing of ulcers or esophagitis. They may be needed to prevent recurrence of ulcers in some patients, or to prevent damage from acid reflux in the esophagus. Take all medication as prescribed, even after the pain is gone. Regular antacids may be added as needed if you have symptoms while taking this medicine. These medications sometimes are prescribed for allergic reactions because they have anti-histaminic effects and relieve the rash and itching of the reaction. There are usually no side effects from this medication. But, in rare cases and particularly in the elderly, serious problems can occur. Contact your doctor if there is fever, rash, hallucinations, confusion, or unusual bruising. Contact your doctor at once if you develop lightheadedness, black or bloody stool, or bloody vomitus. ANTIHISTAMINES: An antihistamine has been given and/or prescribed to control your symptoms. Antihistamines are used for many reasons, including itching, watering eyes, runny nose, allergic swelling, hives, and insect stings. Antihistamines may cause drowsiness, especially with the first dose. Do not operate machinery or drive while under the effects of the medication. Other common side effects include dry mouth and eyes. In older persons, antihistamines can occasionally cause urinary retention, constipation, and trouble focusing the eyes. Do not combine the medication with alcohol, or with any other medication without talking to your doctor. USE OF DIPHENHYDRAMINE: The use of diphenhydramine (Benadryl) has been recommended to control allergic symptoms. The 25 mg strength is available over- the-counter, as well as the elixir. This antihistamine is used for many symptoms. It's useful for itching, watering eyes and nose, allergic swelling, hives, and insect stings. The medication can be repeated four times daily. Age Elixir (12.5 mg/tsp) 25 mg pill 2-3 yr 1/2 tsp 4-8 yr 1 tsp 9-14 yr 2 tsp one tab adult 1-2 tabs Antihistamines may cause drowsiness, especially with the first dose. Do not operate machinery or drive while under the effects of the medication. Do not combine the medication with alcohol, or with any other medication without talking to your doctor. FOLLOW-UP CARE: If you have been referred to a physician for follow-up care, call the physician s office for an appointment as you were instructed or within the next two days. If you experience worsening or a significant change in your symptoms, notify the physician immediately or return to the Emergency Department at any time for re-evaluation. Prescriptions: Epinephrine [Epipen 2-Darinel] 0.3 mg IM ONCE PRN #2 unit PRN Reason: Referrals: CANDIE RICHARDSON MD [Primary Care Provider] - Follow up as needed
[2017-03-10 12:03] VITALS: BP 129/88
== END 2017-03-10 12:08 | disposition home or self-care (01) ==
LOC: ER 08:56
DX: T78.3XXA Angioneurotic edema, initial encounter (principal); X58.XXXA Exposure to other specified factors, initial encounter; F17.200 Nicotine dependence, unspecified, uncomplicated; F20.9 Schizophrenia, unspecified; Z88.6 Allergy status to analgesic agent; Z91.040 Latex allergy status; Z91.010 Allergy to peanuts; Z91.013 Allergy to seafood
CPT/HCPCS: 99283; 96361; 96374; 96375; J1200; J2930; J7030; S0028

== ENCOUNTER 2017-09-16 02:27 | Emergency (ER) | payer MEDICARE, MEDICAID ==
[2017-09-16] MEDS ORDERED: EPINEPHRINE INJ/PF 1 MG/1 ML AMPULE IM ONE (02:35)
[2017-09-16] MEDS ORDERED: EPINEPHRINE INJ/PF 1 MG/1 ML AMPULE ONE (02:37)
--- NOTE | 2017-09-16 02:43 | ER Document Report ---
ED General - General Stated Complaint: POSSIBLE ALLERGIC REACTION Time Seen by Provider: 09/16/17 02:32 Notes: Patient is a 52-year-old male with a past medical history of schizophrenia and multiple allergies with associated history of anaphylaxis who presents with left -sided tongue swelling which she states woke him up from sleep. The patient states that he went to bed and felt fine at that time but woke up feeling like his tongue was swollen and contacted 911. He states that he took Benadryl without any improvement. He states that he is a had a history of similar symptoms in the past when he has had allergic reactions particularly to seafood but denies ingestion of any of these substances today. He denies any skin lesions, shortness of breath, difficulty swallowing, lightheadedness, syncope, or abdominal pain. He has not contacted his general doctor regarding today's concerns. He denies a known family history of hereditary angioedema and denies any use of MENG inhibitors or angiotensin receptor blockers. TRAVEL OUTSIDE OF THE [place] IN LAST 30 DAYS: No - Related Data Allergies/Adverse Reactions: aluminum hydroxide [From Bufferin] Allergy (Verified 03/10/17 09:15) aspirin [Aspirin] Allergy (Verified 03/10/17 09:15) calcium carbonate [From Bufferin] Allergy (Verified 03/10/17 09:15) Coconut * [Coconut] Allergy (Verified 03/10/17 09:15) ibuprofen Allergy (Verified 03/10/17 09:15) latex [Latex] Allergy (Verified 03/10/17 09:15) Magnesium [From Bufferin] Allergy (Verified 03/10/17 09:15) peanut [Peanut] Allergy (Verified 03/10/17 09:15) Shellfish * [Shellfish] Allergy (Verified 03/10/17 09:15) Past Medical History - General Information source: Patient - Social History Smoking Status: Never Smoker Frequency of alcohol use: None Drug Abuse: None Lives with: Family Family History: Reviewed & Not Pertinent Renal/ Medical History: Denies: Hx Peritoneal Dialysis GI Medical History: Reports: Hx Gastroesophageal Reflux Disease Psychiatric Medical History: Reports: Hx Depression, Hx Schizophrenia Past Surgical History: Reports: Hx Tonsillectomy - Immunizations Immunizations up to date: Yes Hx Diphtheria, Pertussis, Tetanus Vaccination: Yes Hx Pneumococcal Vaccination: 04/16/00 Review of Systems - Review of Systems Notes: Constitutional: Negative for fever. HENT: Positive for left-sided tongue swelling Eyes: Negative for visual changes. Cardiovascular: Negative for chest pain. Respiratory: Negative for shortness of breath. Gastrointestinal: Negative for abdominal pain, vomiting or diarrhea. Genitourinary: Negative for dysuria. Musculoskeletal: Negative for back pain. Skin: Negative for rash. Neurological: Negative for headaches, weakness or numbness. 10 point ROS negative except as marked above and in HPI. Physical Exam - Vital signs Vitals: Temp Pulse Resp BP Pulse Ox 98.1 F 68 16 125/82 97 09/16/17 02:41 09/16/17 02:41 09/16/17 02:41 09/16/17 02:41 09/16/17 02:41 Interpretation: Normal Notes: PHYSICAL EXAMINATION: GENERAL: Well-appearing, well-nourished and in no acute distress. HEAD: Atraumatic, normocephalic. EYES: Pupils equal round and reactive to light, extraocular movements intact, sclera anicteric, conjunctiva are normal. ENT: nares patent, oropharynx clear without exudates. Oropharynx is widely patent. There is mild swelling to the left side of the anterior tongue. NECK: Normal range of motion, supple without lymphadenopathy. No stridor LUNGS: Breath sounds clear to auscultation bilaterally and equal. No wheezes rales or rhonchi. HEART: Regular rate and rhythm without murmurs ABDOMEN: Soft, nontender, normoactive bowel sounds. No guarding, no rebound. No masses appreciated. EXTREMITIES: Normal range of motion, no pitting or edema. No cyanosis. NEUROLOGICAL: No focal neurological deficits. Moves all extremities spontaneously and on command. PSYCH: Normal mood, normal affect. SKIN: Warm, Dry, normal turgor, no rashes or lesions noted. Course - Re-evaluation Re-evalutation: 09/16/17 02:42 Patient presents with swelling to the left aspect of the tongue although no airway compromise, no urticaria, GI symptoms and pressures within normal limits. He has a history of allergic reactions to seafood in the past but states he did not eat any seafood today. Patient does not take any form of an MENG inhibitor or an angiotensin receptor javed. He reports that he has no family or personal history of angioedema although his presentation appears to be much more consistent with this diagnosis than an acute allergic reaction. Will treat with 0.5 mg of intramuscular epinephrine and reassess 09/16/17 03:10 Patient has not had any significant change after receiving epinephrine and steroids. He continues to have swelling of the left half of his tongue but although it has not improved it likewise has not progressed. Patient and his mother at the bedside again reaffirmed that he has no prior history of similar symptoms in the past that there is no known family history of hereditary angioedema. However, when I review patient's prior medical records he has a long-standing history of known hereditary angioedema and has been seen and hospitalized on multiple occasions for the exact same presentation. This does confirm my initial suspicion that this is hereditary angioedema. This appears to be a very mild presentation. He will continue to be monitored to ensure that he is not have any progression. 09/16/17 03:28 Patient continues without any progression of tongue angioedema. Will continue to monitor closely. 09/16/17 04:18 Patient continues to be clinically unchanged from time of presentation. No progression of his angioedema. I believe it is safe for him to be discharged home and have clearly instructed the patient and his mother at the bedside that he is to immediately return for any progression of the edema, any shortness of breath or difficulty swallowing. At this time will discharge with return precautions and follow-up recommendations. Verbal discharge instructions given a the bedside and opportunity for questions given. Medication warnings reviewed. Patient is in agreement with this plan and has verbalized understanding of return precautions and the need for primary care follow-up in the next 24-72 hours. - Vital Signs Vital signs: Temp Pulse Resp BP Pulse Ox 98.1 F 68 20 113/77 98 09/16/17 02:41 09/16/17 02:41 09/16/17 04:01 09/16/17 04:01 09/16/17 04:01 Discharge - Discharge Clinical Impression: Hereditary angioedema, Tongue swelling Condition: Good Disposition: HOME, SELF-CARE Additional Instructions: You have been diagnosed with angioedema today. You have a condition called hereditary angioedema which occasionally caused these symptoms without a specific trigger. There is no treatment for this diagnosis your body to resolve the swelling on its own. Your swelling will resolve over the next several days. Return to emergency room immediately if you have worsening swelling, shortness of breath, difficulty swallowing, noticed a change in your voice, or have any other symptoms that are of concern to you. Referrals: CANDIE RICHARDSON MD [Primary Care Provider] - Follow up as needed
[2017-09-16] MEDS ORDERED: DIPHENHYDRAMINE HCL 50 MG/ML VIAL IV ONE (02:45)
[2017-09-16] MEDS ORDERED: DEXAMETHASONE SOD PHOS INJ 10 MG/1 ML VIAL IV ONE (02:45)
[2017-09-16] MEDS ORDERED: FAMOTIDINE INJ/PF 20 MG/2 ML SDV IV ONE (02:45)
[2017-09-16 04:43] VITALS: BP 127/81
== END 2017-09-16 04:44 | disposition home or self-care (01) ==
LOC: ER 02:27
DX: D84.1 Defects in the complement system (principal); R22.0 Localized swelling, mass and lump, head; Z91.040 Latex allergy status; Z88.6 Allergy status to analgesic agent; Z91.010 Allergy to peanuts; Z91.013 Allergy to seafood; Z91.018 Allergy to other foods
CPT/HCPCS: 99283; 96372; 96374; J0171; S0028; J1100

== ENCOUNTER 2017-11-18 07:04 | Emergency (ER) | payer MEDICARE, MEDICAID ==
[2017-11-18] MEDS ORDERED: EPINEPHRINE INJ/PF 1 MG/1 ML AMPULE SUBCUT ONE (07:19)
--- NOTE | 2017-11-18 07:41 | ER Document Report ---
ED Allergic Reaction - General Chief Complaint: Allergic Reaction Stated Complaint: TONGUE SWELLING Time Seen by Provider: 11/18/17 07:09 TRAVEL OUTSIDE OF THE [place] IN LAST 30 DAYS: No - HPI Notes: 52-year-old male who presents with "allergic reaction". 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 He is brought by EMS after he woke up complaining of tongue swelling. Managing his secretions, no significant voice changes. No dyspnea, no rash. He injected himself with an EpiPen and EMS gave him Solu-Medrol Pepcid. He also took 75 mg of Benadryl prior to arrival. He states he is feeling somewhat better at this time. Denies any odynophagia. Denies any new medications or foods, no known seafood or peanut intake. No other modifying factors, no other associated symptoms, no other provocative or palliative factors. - Related Data Allergies/Adverse Reactions: aluminum hydroxide [From Bufferin] Allergy (Verified 11/18/17 07:47) aspirin [Aspirin] Allergy (Verified 11/18/17 07:47) calcium carbonate [From Bufferin] Allergy (Verified 11/18/17 07:47) Coconut * [Coconut] Allergy (Verified 11/18/17 07:47) ibuprofen Allergy (Verified 11/18/17 07:47) latex [Latex] Allergy (Verified 11/18/17 07:47) Magnesium [From Bufferin] Allergy (Verified 11/18/17 07:47) peanut [Peanut] Allergy (Verified 11/18/17 07:47) Shellfish * [Shellfish] Allergy (Verified 11/18/17 07:47) Past Medical History - Social History Smoking Status: Former Smoker Family History: Reviewed & Not Pertinent Patient has suicidal ideation: No Patient has homicidal ideation: No - Past Medical History Other: Includes angioedema/hereditary angioedema Renal/ Medical History: Denies: Hx Peritoneal Dialysis GI Medical History: Reports: Hx Gastroesophageal Reflux Disease Psychiatric Medical History: Reports: Hx Bipolar Disorder, Hx Depression, Hx Schizophrenia Past Surgical History: Reports: Hx Orthopedic Surgery, Hx Tonsillectomy - Immunizations Immunizations up to date: Yes Hx Diphtheria, Pertussis, Tetanus Vaccination: Yes Hx Pneumococcal Vaccination: 04/16/00 Review of Systems - Review of Systems Notes: Review of systems as in the history of present illness, otherwise negative x 10 systems. Physical Exam - Vital signs Vitals: Resp BP Pulse Ox 28 H 140/89 H 99 11/18/17 07:11 11/18/17 07:11 11/18/17 07:11 - Notes Notes: General: Well developed . HEENT: Normocephalic, atraumatic. Pupils equal round reactive to light. No JVD. Oropharynx shows no pharyngeal edema or erythema. No uvular edema. There is slightly asymmetric posterior tongue swelling on the right. No s sublingual edema. Posterior neck is not swollen. No brawny edema Chest: No trauma. Respiratory: Good air exchange, normal excursion. Cardiac: Regular rhythm. No murmurs or gallops. Abdomen: Soft, benign. Nondistended. Nontender. Back: No asymmetry or gross abnormality. Motor: Grossly normal power and tone. Neurologic: Alert, nonfocal. Cranial nerves II-12 are intact. Sensation intact. Vascular: Well perfused. Normal peripheral pulses. Skin: No petechiae or purpura. Course - Re-evaluation Re-evalutation: 11/18/17 07:40 Well-appearing 52-year-old male with the after mentioned symptoms. Consider allergic reaction versus exacerbation of angioedema. This point is maintaining his airway and is actually having symptomatic improvement. We will continue to watch and reassess pain careful attention serial airway examination. 11/18/17 10:07 Patient is watched through an extended period of time in the emergency department, he had complete resolution of symptoms, feeling much better. At his request, I am refilling his EpiPen, will be discharged with a prescription for prednisone, outpatient follow-up. - Vital Signs Vital signs: Temp Pulse Resp BP Pulse Ox 98.9 F 28 H 138/81 H 96 11/18/17 07:19 11/18/17 09:01 11/18/17 09:01 11/18/17 09:01 Discharge - Discharge Clinical Impression: Allergic reaction Qualifiers: Encounter type: initial encounter Qualified Code(s): T78.40XA - Allergy, unspecified, initial encounter Condition: Good Disposition: HOME, SELF-CARE Instructions: Acute Allergic Reaction ([facility]) Prescriptions: Epinephrine 0.3 mg IJ ONCE PRN #2 auto.injct PRN Reason: Prednisone [Deltasone 20 mg Tablet] 3 tab PO DAILY 5 Days tablet Referrals: CANDIE RICHARDSON MD [Primary Care Provider] - Follow up as needed
[2017-11-18 10:11] VITALS: BP 127/81
== END 2017-11-18 10:15 | disposition home or self-care (01) ==
LOC: ER 07:04
DX: T78.40XA Allergy, unspecified, initial encounter (principal); R22.0 Localized swelling, mass and lump, head; X58.XXXA Exposure to other specified factors, initial encounter; Z88.6 Allergy status to analgesic agent; Z88.8 Allergy status to other drugs, medicaments and biological substances; Z91.018 Allergy to other foods; Z91.040 Latex allergy status; Z91.010 Allergy to peanuts; Z91.013 Allergy to seafood; Z87.891 Personal history of nicotine dependence
CPT/HCPCS: 99283; 96372; J0171

== ENCOUNTER 2018-01-30 07:22 | Emergency (ER) | payer MEDICARE, MEDICAID ==
[2018-01-30] MEDS ORDERED: METHYLPREDNISOLONE INJ 40 MG/1 ML SDV IV ONE (07:39)
--- NOTE | 2018-01-30 08:21 | ER Document Report ---
ED General - General Chief Complaint: Allergic Reaction Stated Complaint: POSSIBLE ALLERGIC REACTION Time Seen by Provider: 01/30/18 07:27 Notes: Patient is a 52-year-old male that presents to the emergency department for chief complaint of allergic reaction, facial swelling. Patient states that he had some itching and hives on his arms yesterday, and then noticed this morning and his face was swollen and itching, he does not recall any new medications or foods, does not recall being stung by bee although he thinks he might of felt a shipping receiving clerk the side of his face but he is not 100% sure. He called EMS because of his symptoms. He was given Benadryl by EMS 50 mg, he states he does have seasonal allergies, and is on montelukast, which apparently per EMS they reviewed and can cause angioedema. Patient denies any prior history of angioedema. He denies having any shortness of breath or sensation of throat closing or sore throat, denies any chest pain, nausea, vomiting or abdominal pain. Past Medical History: Bipolar disorder, seasonal allergies Past Surgical History: Denies surgical history Social History: Admits to smoking cigarettes daily, and rare alcohol use, denies illicit drug use Family History: Reviewed and noncontributory for presenting illness Allergies: Reviewed, see documented allergy list. REVIEW OF SYSTEMS: Unless otherwise stated in this report the patient's positive and negative responses for review of systems for constitutional, eyes, ENT, cardiovascular, respiratory, gastrointestinal, neurological, genitourinary, musculoskeletal, and integumentary systems and related systems to the presenting problem are either as stated in the HPI or were not pertinent or were negative for the symptoms and/or complaints related to the presenting medical problem. PHYSICAL EXAMINATION: Vital signs reviewed, nursing noted reviewed. GENERAL: Well-appearing, well-nourished and in no acute distress. HEAD: Atraumatic, normocephalic. There is generalized facial swelling, periorbital swelling, that is nontender to palpate, not erythematous EYES: Eyes appear normal, extraocular movements intact, sclera anicteric, conjunctiva are normal. ENT: nares patent, oropharynx clear without exudates. Moist mucous membranes. Uvula is midline, nonedematous, tongue appears normal, nonedematous, no submental tenderness NECK: Normal range of motion, supple without lymphadenopathy LUNGS: Breath sounds clear to auscultation bilaterally and equal. No wheezes rales or rhonchi. HEART: Regular rate and rhythm without murmurs ABDOMEN: Soft, nontender, normoactive bowel sounds. No rebound, guarding, or rigidity. No masses appreciated. EXTREMITIES: Nontender, good range of motion, no pitting or edema. NEUROLOGICAL: No focal neurological deficits. Moves all extremities spontaneously Motor and sensory grossly intact on exam. PSYCH: Normal mood, normal affect. SKIN: Warm, Dry, normal turgor, mild urticarial rash noted on the forearms bilaterally, no rash noted on the trunk or legs. TRAVEL OUTSIDE OF THE [place] IN LAST 30 DAYS: No - Related Data Allergies/Adverse Reactions: aluminum hydroxide [From Bufferin] Allergy (Verified 11/18/17 07:47) aspirin [Aspirin] Allergy (Verified 11/18/17 07:47) calcium carbonate [From Bufferin] Allergy (Verified 11/18/17 07:47) Coconut * [Coconut] Allergy (Verified 11/18/17 07:47) ibuprofen Allergy (Verified 11/18/17 07:47) latex [Latex] Allergy (Verified 11/18/17 07:47) Magnesium [From Bufferin] Allergy (Verified 11/18/17 07:47) peanut [Peanut] Allergy (Verified 11/18/17 07:47) Shellfish * [Shellfish] Allergy (Verified 11/18/17 07:47) Past Medical History - Social History Smoking Status: Current Every Day Smoker Frequency of alcohol use: Occasional Drug Abuse: None Family History: Reviewed & Not Pertinent Patient has suicidal ideation: No Patient has homicidal ideation: No Renal/ Medical History: Denies: Hx Peritoneal Dialysis GI Medical History: Reports: Hx Gastroesophageal Reflux Disease Psychiatric Medical History: Reports: Hx Bipolar Disorder, Hx Depression, Hx Schizophrenia Past Surgical History: Reports: Hx Orthopedic Surgery, Hx Tonsillectomy - Immunizations Immunizations up to date: Yes Hx Diphtheria, Pertussis, Tetanus Vaccination: Yes Hx Pneumococcal Vaccination: 04/16/00 Physical Exam - Vital signs Vitals: Resp Pulse Ox 18 96 01/30/18 07:45 01/30/18 07:45 Course - Re-evaluation Re-evalutation: Patient seen and examined vital signs reviewed. Patient was evaluated and treated as appropriate for the patient's presenting symptoms and complaint, with consideration of any critical or life threatening conditions that may be associated with their obtained history and exam as noted above. Patient was treated with IV Solu-Medrol, received Benadryl by EMS The patient was re-evaluated and was much improved, his facial swelling had decreased significantly, no airway compromise, patient remained hemodynamically stable Evaluation was most consistent with angioedema, unspecified trigger, possibly montelukast, advised not taking this medication anymore, given a prescription for Claritin, and advised to follow-up patient was agreeable. Plan of care was discussed with the patient at this point, after careful consideration I feel that that patient can be discharged from the emergency department, the patient was educated treatments and reasons to return to the emergency department based on their presumed diagnosis as noted above, they were advised to followup with a primary care physician in 2-3 days. Patient was agreeable to plan of care. *Note is created using voice recognition software and may contain spelling, syntax or grammatical errors. - Vital Signs Vital signs: Temp Pulse Resp BP Pulse Ox 97.5 F 23 H 131/88 H 100 01/30/18 07:46 01/30/18 08:01 01/30/18 09:01 01/30/18 09:01 Discharge - Discharge Clinical Impression: Angioedema Qualifiers: Encounter type: initial encounter Qualified Code(s): T78.3XXA - Angioneurotic edema, initial encounter Condition: Stable Disposition: HOME, SELF-CARE Instructions: Angioedema ([facility]) Additional Instructions: DISCONTINUE TAKING THE MONTELUKAST THIS MAY HAVE TRIGGERED THE SWELLING, YOU HAVE BEEN PROVIDED A NEW MEDICATION FOR ALLERGIES. PLEASE FOLLOW-UP WITH YOUR PRIMARY CARE PHYSICIAN. Please return to the emergency department if you have any worsening, or concern of your symptoms. Please return to the emergency department if you develop chest pain, difficulty breathing, severe abdominal pain, or ongoing vomiting. Please follow-up with your primary care physician in 2-3 days and any other recommended physicians. If prescribed, take all medications as directed. If you have any questions or concerns do not hesitate to return the emergency department for evaluation. Prescriptions: Loratadine [Claritin] 10 mg PO DAILY #20 tablet Referrals: CANDIE RICHARDSON MD [Primary Care Provider] - Follow up in 3-5 days
[2018-01-30 10:33] VITALS: BP 137/92
== END 2018-01-30 10:44 | disposition home or self-care (01) ==
LOC: ER 07:22
DX: T78.3XXA Angioneurotic edema, initial encounter (principal); R22.0 Localized swelling, mass and lump, head; F17.210 Nicotine dependence, cigarettes, uncomplicated
CPT/HCPCS: 99283; 96374; J2920

== ENCOUNTER 2018-09-14 22:47 | Observation (INO) | payer MEDICARE, MEDICAID ==
[2018-09-15] MEDS ORDERED: METHYLPREDNISOLONE INJ 125 MG/2 ML SDV IV ONE (00:21)
[2018-09-15] MEDS ORDERED: DIPHENHYDRAMINE HCL 50 MG/ML VIAL IV ONE (00:21)
[2018-09-15] MEDS ORDERED: FAMOTIDINE INJ/PF 20 MG/2 ML SDV IV ONE (00:21)
--- NOTE | 2018-09-15 00:24 | ER Document Report ---
ED Allergic Reaction - General Chief Complaint: Allergic Reaction Stated Complaint: POSSIBLE ALLERGIC REACTION Time Seen by Provider: 09/15/18 00:10 Primary Care Provider: CANDIE RCIHARDSON MD [Primary Care Provider] - Follow up as needed Mode of Arrival: Ambulatory Information source: Patient Notes: Patient is a 53-year-old male presented to the emergency department with upper lip swelling. Patient reports symptoms started approximately 4 PM. He denies any tongue swelling, reports no difficulties with swallowing. Patient's parents are at bedside, they state he has had angioedema previously with an allergic reaction to shellfish. Patient started taking lisinopril with HCTZ this morning, he has had one dose. TRAVEL OUTSIDE OF THE [place] IN LAST 30 DAYS: No - Related Data Allergies/Adverse Reactions: aluminum hydroxide [From Bufferin] Allergy (Verified 11/18/17 07:47) aspirin [Aspirin] Allergy (Verified 11/18/17 07:47) calcium carbonate [From Bufferin] Allergy (Verified 11/18/17 07:47) Coconut * [Coconut] Allergy (Verified 11/18/17 07:47) ibuprofen Allergy (Verified 11/18/17 07:47) latex [Latex] Allergy (Verified 11/18/17 07:47) Magnesium [From Bufferin] Allergy (Verified 11/18/17 07:47) peanut [Peanut] Allergy (Verified 11/18/17 07:47) Shellfish * [Shellfish] Allergy (Verified 11/18/17 07:47) Past Medical History - General Information source: Patient - Social History Smoking Status: Never Smoker Frequency of alcohol use: None Drug Abuse: None Family History: Reviewed & Not Pertinent Renal/ Medical History: Denies: Hx Peritoneal Dialysis GI Medical History: Reports: Hx Gastroesophageal Reflux Disease Psychiatric Medical History: Reports: Hx Bipolar Disorder, Hx Depression, Hx Schizophrenia Past Surgical History: Reports: Hx Orthopedic Surgery, Hx Tonsillectomy - Immunizations Immunizations up to date: Yes Hx Diphtheria, Pertussis, Tetanus Vaccination: Yes Hx Pneumococcal Vaccination: 04/16/00 Review of Systems - Review of Systems Constitutional: No symptoms reported EENT: Mouth swelling - Upper lip swelling Cardiovascular: No symptoms reported Gastrointestinal: No symptoms reported Genitourinary: No symptoms reported Male Genitourinary: No symptoms reported Musculoskeletal: No symptoms reported Skin: No symptoms reported Hematologic/Lymphatic: No symptoms reported Neurological/Psychological: No symptoms reported Physical Exam - Vital signs Vitals: Temp Pulse Resp BP Pulse Ox 98.4 F 97 24 H 109/74 94 09/14/18 23:05 09/14/18 23:05 09/14/18 23:05 09/14/18 23:05 09/14/18 23:05 - Notes Notes: PHYSICAL EXAMINATION: GENERAL: Well-appearing, well-nourished and in no acute distress. HEAD: Atraumatic, normocephalic. Edema noted to upper lip. EYES: Pupils equal round and reactive to light, extraocular movements intact, sclera anicteric, conjunctiva are normal. ENT: Nares patent, oropharynx clear without exudates. Moist mucous membranes. No tongue swelling noted, tongue midline. NECK: Normal range of motion, supple without lymphadenopathy LUNGS: Breath sounds clear to auscultation bilaterally and equal. No wheezes rales or rhonchi. HEART: Regular rate and rhythm without murmurs ABDOMEN: Soft, nontender, nondistended abdomen. No guarding, no rebound. No masses appreciated. Musculoskeletal: Normal range of motion, no pitting or edema. No cyanosis. NEUROLOGICAL: Cranial nerves grossly intact. Normal speech, normal gait. Normal sensory, motor exams PSYCH: Normal mood, normal affect. SKIN: Warm, Dry, normal turgor, no rashes or lesions noted. Course - Re-evaluation Re-evalutation: 09/15/18 00:26 Patient's history as well as physical examination are consistent with angioedema probably related to the new medication he is taking which is lisinopril/HCTZ. Patient has had a history of angioedema in the past related to shellfish. There is swelling noted to the upper lip, no swelling noted to the tongue, patient speaking in full and complete sentences and having no difficulty swallowing. Patient will be medicated here in the emergency department. He has already been instructed to not to take anymore of the lisinopril medication. His blood pressure is within normal limits today, it is 109/74 so new blood pressure medication will not be started. Upper lip swelling has increased since administration of the Pepcid, Benadryl and Solu-Medrol. Discussed case with Dr. Gonsalves who recommends giving TXA and 1 unit of FFP. Patient and family members are agreeable to this plan. Patient continues to speak in full and complete sentences and has no obvious airway compromise. 1 hour after administration of TXA and FFP the patient continues to have The same amount of swelling to his upper lip. The swelling has not increased however it is also not decreased. Will consult hospitalist for admission. Hospitalist consulted for admission and agrees to admit patient. Patient feeling member updated again on plan of care, they are agreeable to this. Patient stable at time of admission. - Vital Signs Vital signs: Temp Pulse Resp BP Pulse Ox 98.7 F 82 16 111/79 100 09/15/18 04:50 09/15/18 04:50 09/15/18 05:01 09/15/18 04:50 09/15/18 05:01 Discharge - Discharge Clinical Impression: Angioedema Qualifiers: Encounter type: initial encounter Qualified Code(s): T78.3XXA - Angioneurotic edema, initial encounter Condition: Stable Disposition: ADMITTED INPATIENT Admitting Provider: Sandra (Hospitalist) Unit Admitted: Telemetry Referrals: CANDIE RICHARDSON MD [Primary Care Provider] - Follow up as needed
[2018-09-15] MEDS ORDERED: TRANEXAMIC ACID INJ/PF 1,000 MG/10 ML SDV IV ONE (02:17)
[2018-09-15] MEDS ORDERED: NORMAL SALINE 250 ML IV PRN (02:17)
--- NOTE | 2018-09-15 05:21 | ER Document Report ---
ED Allergic Reaction - General Chief Complaint: Allergic Reaction Stated Complaint: POSSIBLE ALLERGIC REACTION Time Seen by Provider: 09/15/18 00:10 Mode of Arrival: Ambulatory TRAVEL OUTSIDE OF THE [place] IN LAST 30 DAYS: No - Related Data Allergies/Adverse Reactions: aluminum hydroxide [From Bufferin] Allergy (Verified 11/18/17 07:47) aspirin [Aspirin] Allergy (Verified 11/18/17 07:47) calcium carbonate [From Bufferin] Allergy (Verified 11/18/17 07:47) Coconut * [Coconut] Allergy (Verified 11/18/17 07:47) ibuprofen Allergy (Verified 11/18/17 07:47) latex [Latex] Allergy (Verified 11/18/17 07:47) Magnesium [From Bufferin] Allergy (Verified 11/18/17 07:47) peanut [Peanut] Allergy (Verified 11/18/17 07:47) Shellfish * [Shellfish] Allergy (Verified 11/18/17 07:47) Past Medical History - General Information source: Patient - Social History Smoking Status: Unknown if Ever Smoked Frequency of alcohol use: None Drug Abuse: None Family History: Reviewed & Not Pertinent Patient has suicidal ideation: No Patient has homicidal ideation: No Renal/ Medical History: Denies: Hx Peritoneal Dialysis GI Medical History: Reports: Hx Gastroesophageal Reflux Disease Psychiatric Medical History: Reports: Hx Bipolar Disorder, Hx Depression, Hx Schizophrenia Past Surgical History: Reports: Hx Orthopedic Surgery, Hx Tonsillectomy - Immunizations Immunizations up to date: Yes Hx Diphtheria, Pertussis, Tetanus Vaccination: Yes Hx Pneumococcal Vaccination: 04/16/00 Physical Exam - Vital signs Vitals: Temp Pulse Resp BP Pulse Ox 98.4 F 97 24 H 109/74 94 09/14/18 23:05 09/14/18 23:05 09/14/18 23:05 09/14/18 23:05 09/14/18 23:05 Course - Vital Signs Vital signs: Temp Pulse Resp BP Pulse Ox 98.7 F 82 16 111/79 100 09/15/18 04:50 09/15/18 04:50 09/15/18 05:01 09/15/18 04:50 09/15/18 05:01 Discharge - Discharge Clinical Impression: Angioedema Qualifiers: Encounter type: initial encounter Qualified Code(s): T78.3XXA - Angioneurotic edema, initial encounter Condition: Stable Disposition: ADMITTED INPATIENT Admitting Provider: Sandra (Hospitalist) Unit Admitted: Telemetry
[2018-09-15] MEDS ORDERED: HALOPERIDOL DECANOATE INJ 100 MG/1 ML VIAL IM SCH (08:00)
[2018-09-15] MEDS ORDERED: ONDANSETRON HCL INJ/PF 4 MG/2 ML SDV IV PRN (08:11)
[2018-09-15] MEDS ORDERED: MAG HYDROX/AL HYDROX/SIMETH SUSP 30 ML UDCUP PO PRN (08:11)
[2018-09-15] MEDS ORDERED: MAGNESIUM HYDROXIDE SUSP 30 ML UDCUP PO PRN (08:11)
[2018-09-15] MEDS ORDERED: ZOLPIDEM TARTRATE 5 MG TABLET PO PRN (08:11)
--- NOTE | 2018-09-15 08:11 | PDOC H&P ---
History of Present Illness Admission Date/PCP: 09/15/18 05:54 CANDIE RICHARDSON MD Patient complains of: Swelling of lips History of Present Illness: SHANNAN CASTLE is a 53 year old male who presented to the emergency room with acute swelling of his lips. He gives a history of acute severe swelling of his upper lip bilaterally beginning of the approximately 4 PM on 09/14/2018 about 8 hours after taking his first dose of lisinopril with hydrochlorothiazide to treat his hypertension. He admits to prior similar episode when eating shellfish the last time. He has not identified any aggravating or ameliorating factors for his lip swelling. He denies any associated dyspnea or difficulty br eathing or swallowing. In the emergency room he was treated with 25 mg of Benadryl 20 mg of Pepcid and 125 mg of Solu-Medrol as well as 1 unit of FFP and TXA without significant response. He was subsequently admitted to the hospital for further evaluation and treatment on an observation status. Past Medical History Cardiac Medical History: Reports: Hypertension Denies: Coronary Artery Disease Pulmonary Medical History: Reports: Bronchitis Denies: Asthma, Chronic Obstructive Pulmonary Disease (COPD), Pneumonia EENT Medical History: Denies: Cataracts, Ears - Hearing aids Neurological Medical History: Denies: Hemorrhagic CVA, Ischemic CVA, Seizures Endocrine Medical History: Reports: Obesity Denies: Diabetes Mellitus Type 1, Diabetes Mellitus Type 2, Hyperthyroidism, Hypothyroidism Renal/ Medical History: Denies: Chronic Kidney Disease, Nephrolithiasis Malignancy Medical History: Reports: None GI Medical History: Reports: Gastroesophageal Reflux Disease Denies: Cirrhosis, Hepatitis Musculoskeltal Medical History: Denies: Arthritis, Gout Skin Medical History: Denies: Eczema, Psoriasis Psychiatric Medical History: Reports: Bipolar Disorder, Depression, Tobacco Dependency Denies: Alcohol Dependency, Substance Abuse Traumatic Medical History: Reports: None Hematology: Denies: Anemia, Bleeding Tendencies Infectious Medical History: Reports: None Past Surgical History Past Surgical History: Reports: Orthopedic Surgery, Tonsillectomy Social History Information Source: Patient Lives with: Family Smoking Status: Current Every Day Smoker Frequency of Alcohol Use: Occasional Hx Recreational Drug Use: No - unknown Drugs: None Hx Prescription Drug Abuse: No - Advance Directive Resuscitation Status: Full Code Surrogate healthcare decision maker:: Mother Family History Family History: CAD, DM, Hypertension, Malignancy Parental Family History Reviewed: Yes Children Family History Reviewed: No Sibling(s) Family History Reviewed.: Yes Medication/Allergy Home Medications: Benztropine Mesylate [Benztropine Mesylate 2 mg Tablet] 2 mg PO QHS 07/26/16 Cetirizine HCl [Zyrtec 10 mg Tablet] 1 tab PO DAILY 07/26/16 Citalopram Hydrobromide [Celexa 20 mg Tablet] 20 mg PO BID 07/26/16 Haloperidol Decanoate [Haldol Decan (Monthly) 100 mg/ml Inj 1 ml] 50 mg IM [id number] 07/26/16 Haloperidol [Haldol 5 mg Tablet] 5 mg PO DAILY 07/26/16 Montelukast Sodium [Singulair 10 mg Tablet] 10 mg PO DAILY 07/26/16 Diphenhydramine HCl [Benadryl] 50 mg PO Q4H PRN #30 capsule 07/27/16 Famotidine [Pepcid 40 mg Tablet] 40 mg PO PRN PRN #10 tablet 07/27/16 Prednisone 60 mg PO DAILY #30 tablet 07/27/16 Epinephrine [Epipen 2-Darinel] 0.3 mg IM ONCE PRN #2 unit 03/10/17 Epinephrine [Epipen 2-Darinel] 0.3 mg IM ONCE PRN #1 packet 09/16/17 Epinephrine 0.3 mg IJ ONCE PRN #2 auto.injct 11/18/17 Prednisone [Deltasone 20 mg Tablet] 3 tab PO DAILY 5 Days tablet 11/18/17 Loratadine [Claritin] 10 mg PO DAILY #20 tablet 01/30/18 Allergies/Adverse Reactions: aluminum hydroxide [From Bufferin] Allergy (Verified 11/18/17 07:47) aspirin [Aspirin] Allergy (Verified 11/18/17 07:47) calcium carbonate [From Bufferin] Allergy (Verified 11/18/17 07:47) Coconut * [Coconut] Allergy (Verified 11/18/17 07:47) ibuprofen Allergy (Verified 11/18/17 07:47) latex [Latex] Allergy (Verified 11/18/17 07:47) Magnesium [From Bufferin] Allergy (Verified 11/18/17 07:47) peanut [Peanut] Allergy (Verified 11/18/17 07:47) Shellfish * [Shellfish] Allergy (Verified 11/18/17 07:47) Review of Systems Constitutional: ABSENT: chills, fever(s) Eyes: ABSENT: visual disturbances, other - Eye pain Ears: ABSENT: hearing changes, other - Ear pain Nose, Mouth, and Throat: PRESENT: as per HPI, other - Edema of upper lip. ABSENT: mouth pain, sore throat Cardiovascular: PRESENT: as per HPI, edema - Edema of upper lip. ABSENT: chest pain, dyspnea on exertion, orthropnea, palpitations Respiratory: ABSENT: cough, dyspnea Gastrointestinal: ABSENT: abdominal pain, constipation, diarrhea, nausea, vomiting Genitourinary: ABSENT: dysuria, hematuria Musculoskeletal: ABSENT: back pain, joint swelling, muscle weakness Integumentary: PRESENT: other - Edema of upper lip. ABSENT: pruritus, rash Neurological: ABSENT: confusion, convulsions, focal weakness, memory loss, syncope Psychiatric: ABSENT: anxiety, depression Endocrine: ABSENT: cold intolerance, heat intolerance Hematologic/Lymphatic: ABSENT: easy bleeding, easy bruising Physical Exam Vital Signs: Temp Pulse Resp BP Pulse Ox 98.7 F 82 16 111/79 100 09/15/18 04:50 09/15/18 04:50 09/15/18 05:01 09/15/18 04:50 09/15/18 05:01 Intake & Output 09/13/18 09/14/18 09/15/18 23:59 23:59 23:59 Intake Total 408 Balance 408 Weight 87.5 kg General appearance: PRESENT: no acute distress, cooperative, obese Head exam: PRESENT: atraumatic, normocephalic Eye exam: PRESENT: EOMI. ABSENT: conjunctival injection, nystagmus, scleral icterus Ear exam: PRESENT: normal external ear exam. ABSENT: bleeding, drainage Mouth exam: PRESENT: dry mucosa, neck supple, tongue midline, other - Angioedema affecting the upper lip bilaterally with slightly more edema present on the right side than the left. Edema is of a moderate degree. There is no edema of the tongue or other oral structures noted. Neck exam: PRESENT: full ROM, other - No cervical edema is noted.. ABSENT: JVD, lymphadenopathy, tenderness, thyromegaly, tracheal deviation Respiratory exam: PRESENT: clear to auscultation gonsalo, symmetrical, unlabored Cardiovascular exam: PRESENT: RRR. ABSENT: clicks, gallop, rubs Pulses: PRESENT: normal radial pulses, normal dorsalis pedis pul Vascular exam: PRESENT: normal capillary refill. ABSENT: pallor GI/Abdominal exam: PRESENT: normal bowel sounds, soft Rectal exam: PRESENT: deferred Extremities exam: ABSENT: joint swelling, pedal edema Musculoskeletal exam: PRESENT: full ROM, normal inspection Neurological exam: PRESENT: alert, oriented to person, oriented to place, oriented to time, oriented to situation, CN II-XII grossly intact. ABSENT: motor sensory deficit Psychiatric exam: PRESENT: appropriate affect, normal mood Skin exam: PRESENT: dry, intact, warm, other - Angioedema of the upper lip as previously described.. ABSENT: jaundice, rash, urticaria Results Laboratory Results: 09/15/18 02:42 Blood Type A POSITIVE Assessment and Plan - Diagnosis (1) Angioedema of lips Qualifiers: Encounter type: initial encounter Qualified Code(s): T78.3XXA - Angioneurotic edema, initial encounter Is this a current diagnosis for this admission?: Yes Plan: Patient was treated with IV Benadryl, IV Solu-Medrol and IV Pepcid. Will be observed closely over the next 12 to 24 hours and discharged when his upper lip angioedema has resolved sufficiently. (2) HTN (hypertension) Qualifiers: Hypertension type: essential hypertension Qualified Code(s): I10 - Essential (primary) hypertension Is this a current diagnosis for this admission?: Yes Plan: Patient be started on an alternative form therapy for his hypertension. Initially this will be attempted with a beta-javed utilizing metoprolol XL. (3) Obesity Qualifiers: Obesity type: due to excess calories Serious obesity comorbidity presence: with serious comorbidity Body mass index: unspecified BMI Is this a current diagnosis for this admission?: Yes Plan: Patient will be advised by nutrition consult for appropriate weight loss to improve his overall health and well-being. This will also contribute to management of his hypertension. (4) Tobacco use disorder, severe, dependence Is this a current diagnosis for this admission?: Yes Plan: Smoking cessation has been advised and counseled briefly. A nicotine replacement patch is available for the patient's use. - Time Time Spent with patient: 15-24 minutes Smoking Cessation Education: 3 to 10 minutes Medications reviewed and adjusted accordingly: Yes Anticipated discharge: Home Within: within 36 hours - Inpatient Certification Based on my medical assessment, after consideration of the patient's comorbidities, presenting symptoms, or acuity I expect that the services needed warrant INPATIENT care.: No I certify that my determination is in accordance with my understanding of Medicare's requirements for reasonable and necessary INPATIENT services [42 CFR 412.3e].: No Medical Necessity: Need Close Monitoring Due to Risk of Patient Decompensation, Risk of Complication if Not Cared For in Hospital
[2018-09-15] MEDS ORDERED: NICOTINE 21 MG/24 HR PATCH.TD24 TD PRN (08:17)
--- NOTE | 2018-09-15 08:52 | RADIOLOGY REPORT (SQ) ---
EXAM DESCRIPTION: CHEST SINGLE VIEW COMPLETED DATE/TIME: 09/15/2018 8:42 am REASON FOR STUDY: shortness of breath COMPARISON: 2015. FINDINGS: Single-view chest AP portable upright. No lung infiltrates or edema. No pneumothorax. Stable cardiomediastinal silhouette with normal heart size. Intact bones. TECHNICAL DOCUMENTATION: JOB ID: [id number] Reading location - IP/workstation name: [email or web address]
[2018-09-15] MEDS: DIPHENHYDRAMINE HCL 50 MG/ML VIAL IV SCH ×5 (08:53→23:22)
[2018-09-15] MEDS: FAMOTIDINE INJ/PF 20 MG/2 ML SDV IV SCH ×2 (10:00→21:17)
[2018-09-15] MEDS: METHYLPREDNISOLONE INJ 40 MG/1 ML SDV IV SCH ×3 (10:00→17:17)
[2018-09-15] MEDS: CITALOPRAM HYDROBROMIDE 20 MG TABLET PO SCH ×2 (10:01→17:17)
[2018-09-15] MEDS: MONTELUKAST SODIUM 10 MG TABLET PO SCH (10:01)
[2018-09-15] MEDS: HALOPERIDOL 5 MG TABLET PO SCH (10:01)
[2018-09-15] MEDS: CETIRIZINE 10 MG TABLET PO SCH (10:01)
[2018-09-15] MEDS: DOCUSATE SODIUM 100 MG CAPSULE PO SCH ×2 (10:03→17:17)
[2018-09-15 10:22] LABS: ABSOLUTE LYMPHOCYTES (AUTO) 1.3 10^3/uL (0.5-4.7); ABSOLUTE NEUT (AUTO) 5.5 10^3/uL (1.7-8.2); BASOPHILS % (AUTO) 0.5 % (0-2); HEMATOCRIT 40.8 % (37.9-51.0); HEMOGLOBIN 13.9 g/dL (13.5-17.0); MEAN CORPUSCULAR HEMOGLOBIN 32.5 pg (27.0-33.4); MEAN CORPUSCULAR VOLUME 96 fl (80-97); MONOCYTES % (AUTO) 0.5 % (3-13); PLATELET COUNT 340 10^3/uL (150-450); RED BLOOD COUNT 4.27 10^6/uL (4.35-5.55); RED CELL DISTRIBUTION WIDTH 12.8 % (11.5-14.0); TOTAL CELLS COUNTED % (AUTO) 100 %; WHITE BLOOD COUNT 6.9 10^3/uL (4.0-10.5)
[2018-09-15 10:42] LABS: ALANINE AMINOTRANSFERASE 30 U/L (21-72); ALBUMIN 4.3 g/dL (3.5-5.0); ALKALINE PHOSPHATASE 72 U/L (38-126); ANION GAP 13 (5-19); ASPARTATE AMINO TRANSFERASE 21 U/L (17-59); BILIRUBIN,DIRECT 0.2 mg/dL (0.0-0.4); BILIRUBIN,TOTAL 0.3 mg/dL (0.2-1.3); BLOOD UREA NITROGEN 18 mg/dL (7-20); CALCIUM 10.1 mg/dL (8.4-10.2); CARBON DIOXIDE 22 mmol/L (22-30); CHLORIDE 105 mmol/L (98-107); GLUCOSE 192 mg/dL (75-110); POTASSIUM 4.5 mmol/L (3.6-5.0); SODIUM 139.5 mmol/L (137-145); TOTAL PROTEIN 7.7 g/dL (6.3-8.2)
[2018-09-15] MEDS: HEPARIN SOD (PORCINE) 5,000 UNIT/ML 1 ML SYRINGE SUBCUT SCH ×2 (13:30→21:03)
[2018-09-15] MEDS ORDERED: BENZTROPINE MESYLATE 1 MG TABLET PO SCH (22:00)
[2018-09-16 01:23] VITALS: BP 136/82
[2018-09-16] MEDS: DIPHENHYDRAMINE HCL 50 MG/ML VIAL IV SCH ×2 (04:32→07:25)
[2018-09-16] MEDS: HEPARIN SOD (PORCINE) 5,000 UNIT/ML 1 ML SYRINGE SUBCUT SCH (05:04)
[2018-09-16 06:41] LABS: ABSOLUTE BASOPHILS # (AUTO) 0.1 10^3/uL (0.0-0.2); ABSOLUTE LYMPHOCYTES (AUTO) 2.7 10^3/uL (0.5-4.7); ABSOLUTE MONOCYTES (AUTO) 0.6 10^3/uL (0.1-1.4); ABSOLUTE NEUT (AUTO) 11.2 10^3/uL (1.7-8.2); BASOPHILS % (AUTO) 0.4 % (0-2); HEMATOCRIT 37.2 % (37.9-51.0); HEMOGLOBIN 12.5 g/dL (13.5-17.0); LYMPHOCYTES % (AUTO) 18.6 % (13-45); MEAN CORPUSCULAR HEMOGLOBIN 32.2 pg (27.0-33.4); MEAN CORPUSCULAR HGB CONC 33.7 g/dL (32.0-36.0); MEAN CORPUSCULAR VOLUME 96 fl (80-97); MONOCYTES % (AUTO) 4.2 % (3-13); PLATELET COUNT 303 10^3/uL (150-450); RED BLOOD COUNT 3.89 10^6/uL (4.35-5.55); RED CELL DISTRIBUTION WIDTH 12.7 % (11.5-14.0); SEGMENTED NEUTROPHILS % (AUTO) 76.8 % (42-78); TOTAL CELLS COUNTED % (AUTO) 100 %
[2018-09-16 06:42] LABS: WHITE BLOOD COUNT 14.6 10^3/uL (4.0-10.5)
[2018-09-16 06:55] LABS: ALANINE AMINOTRANSFERASE 30 U/L (21-72); ALBUMIN 4.2 g/dL (3.5-5.0); ALKALINE PHOSPHATASE 67 U/L (38-126); ANION GAP 10 (5-19); ASPARTATE AMINO TRANSFERASE 22 U/L (17-59); BILIRUBIN,DIRECT 0.3 mg/dL (0.0-0.4); BILIRUBIN,TOTAL 0.5 mg/dL (0.2-1.3); BLOOD UREA NITROGEN 20 mg/dL (7-20); CALCIUM 9.9 mg/dL (8.4-10.2); CARBON DIOXIDE 24 mmol/L (22-30); CHLORIDE 106 mmol/L (98-107); CHOLESTEROL 161.28 mg/dL (0-200); GLUCOSE 102 mg/dL (75-110); POTASSIUM 4.4 mmol/L (3.6-5.0); SODIUM 140.4 mmol/L (137-145); TOTAL PROTEIN 7.4 g/dL (6.3-8.2); TRIGLYCERIDES 50 mg/dL (<150)
[2018-09-16 07:06] LABS: DIRECT LDL 103 mg/dL (<100)
[2018-09-16 07:13] LABS: FREE T3 2.77 pg/mL (2.77-5.27); FREE T4 (FREE THYROXINE) 1.09 ng/dL (0.78-2.19)
[2018-09-16 07:26] LABS: THYROID STIMULATING HORMONE 0.37 uIU/mL (0.47-4.68)
[2018-09-16] MEDS ORDERED: ONDANSETRON HCL INJ/PF 4 MG/2 ML SDV IV PRN (08:30)
[2018-09-16] MEDS: HALOPERIDOL 5 MG TABLET PO SCH (09:55)
[2018-09-16] MEDS: DOCUSATE SODIUM 100 MG CAPSULE PO SCH (09:55)
[2018-09-16] MEDS: CETIRIZINE 10 MG TABLET PO SCH (09:55)
[2018-09-16] MEDS: MONTELUKAST SODIUM 10 MG TABLET PO SCH (09:55)
[2018-09-16] MEDS: FAMOTIDINE INJ/PF 20 MG/2 ML SDV IV SCH (09:56)
[2018-09-16] MEDS: CITALOPRAM HYDROBROMIDE 20 MG TABLET PO SCH (09:56)
[2018-09-16] MEDS ORDERED: METOPROLOL TARTRATE 50 MG TABLET PO SCH (10:00)
--- NOTE | 2018-09-16 11:04 | PDOC DISCHARGE SUMMARY ---
General - Admit/Disc Date/PCP Admission Date/Primary Care Provider: 09/15/18 05:54 CANDIE RICHARDSON MD Discharge Date: 09/16/18 - Discharge Diagnosis (1) Angioedema Is this a current diagnosis for this admission?: Yes Summary: Patient was treated with IV Benadryl, IV Solu-Medrol and IV Pepcid. Will be observed closely over the next 12 to 24 hours and discharged when his upper lip angioedema has resolved sufficiently. [id number] male admitted for angioedema secondary to lisinopril use. He was treated with IV Benadryl, IV Solu-Medrol, IV Pepcid. Angioedema has reso lved. Patient was strongly advised not to take lisinopril anymore. Patient is stable enough to go home today. (2) HTN (hypertension) Is this a current diagnosis for this admission?: Yes Summary: Patient be started on an alternative form therapy for his hypertension. Initially this will be attempted with a beta-javed utilizing metoprolol XL. 09/16/2018-patient blood pressure today is 136/82 he was advised to follow-up with primary care physician in 3 to 5 days for reevaluation and discussion about restarting antihypertensives other than lisinopril. pt agreed and verbalized response. (3) Tobacco use disorder, severe, dependence Is this a current diagnosis for this admission?: Yes Summary: 09/16/2018-patient is a chronic smoker smokes on daily basis smokes close to 1 pack/day smoking counseling was provided this morning. Strongly advised to quit smoking. - Additional Information Resuscitation Status: Full Code Discharge Diet: Cardiac Discharge Activity: Activity As Tolerated Home Medications: Benztropine Mesylate [Benztropine Mesylate 2 mg Tablet] 2 mg PO QHS 07/26/16 Citalopram Hydrobromide [Celexa 20 mg Tablet] 20 mg PO Q12 07/26/16 Haloperidol Decanoate [Haldol Decan (Monthly) 100 mg/ml Inj 1 ml] 50 mg IM [id number] 07/26/16 Haloperidol [Haldol 5 mg Tablet] 5 mg PO DAILY 07/26/16 Epinephrine [Epipen 2-Darinel] 0.3 mg IM ONCE PRN #1 packet 09/16/17 Metoprolol Tartrate [Lopressor 50 mg Tablet] 50 mg PO Q12 09/15/18 History of Present Illness History of Present Illness: SHANNAN CASTLE is a 53 year old male 53 year old male who presented to the emergency room with acute swelling of his lips. He gives a history of acute severe swelling of his upper lip bilaterally beginning of the approximately 4 PM on 09/14/2018 about 8 hours after taking his first dose of lisinopril with hydrochlorothiazide to treat his hypertension. He admits to prior similar episode when eating shellfish the last time. He has not identified any aggravating or ameliorating factors for his lip swelling. He denies any associated dyspnea or difficulty breathing or swallowing. In the emergency room he was treated with 25 mg of Benadryl 20 mg of Pepcid and 125 mg of Solu-Medrol as well as 1 unit of FFP and TXA without significant response. He was subsequently admitted to the hospital for further evaluation and treatment on an observation status. Hospital Course Hospital Course: 53-year-old male admitted after lip swelling following lisinopril use. He was treated with IV Pepcid, IV Benadryl, IV Solu-Medrol angioedema is resolved. Patient is advised not to take lisinopril anymore. Physical Exam Vital Signs: Temp Pulse Resp BP Pulse Ox 98.0 F 81 17 136/82 H 97 09/16/18 10:20 09/16/18 10:20 09/16/18 10:20 09/16/18 10:20 09/16/18 10:20 Intake & Output 09/15/18 09/16/18 09/17/18 06:59 06:59 06:59 Intake Total 408 1220 Balance 408 1220 Weight 87.5 kg 88.1 kg General appearance: PRESENT: no acute distress, well-developed Head exam: PRESENT: atraumatic Eye exam: PRESENT: PERRLA Neck exam: ABSENT: carotid bruit, JVD, lymphadenopathy, thyromegaly Respiratory exam: PRESENT: clear to auscultation gonsalo. ABSENT: rales, rhonchi, wheezes Cardiovascular exam: PRESENT: RRR. ABSENT: diastolic murmur, rubs, systolic murmur Pulses: PRESENT: normal dorsalis pedis pul GI/Abdominal exam: PRESENT: normal bowel sounds, soft. ABSENT: distended, guarding, mass, organolmegaly, rebound, tenderness Rectal exam: PRESENT: deferred Extremities exam: PRESENT: full ROM. ABSENT: calf tenderness, clubbing, pedal edema Neurological exam: PRESENT: alert, awake, oriented to person, oriented to place, oriented to time, oriented to situation, CN II-XII grossly intact. ABSENT: motor sensory deficit Psychiatric exam: PRESENT: appropriate affect, normal mood. ABSENT: homicidal ideation, suicidal ideation Results Laboratory Results: 09/16/18 05:42 09/16/18 05:42 09/16/18 09/16/18 09/16/18 05:42 05:42 05:42 WBC 14.6 H D RBC 3.89 L Hgb 12.5 L Hct 37.2 L MCV 96 MCH 32.2 MCHC 33.7 RDW 12.7 Plt Count 303 Seg Neutrophils % 76.8 Lymphocytes % 18.6 Monocytes % 4.2 Eosinophils % 0.0 Basophils % 0.4 Absolute Neutrophils 11.2 H Absolute Lymphocytes 2.7 Absolute Monocytes 0.6 Absolute Eosinophils 0.0 Absolute Basophils 0.1 Sodium 140.4 Potassium 4.4 Chloride 106 Carbon Dioxide 24 Anion Gap 10 BUN 20 Creatinine 1.12 Est GFR ( Amer) > 60 Est GFR (Non-Af Amer) > 60 Glucose 102 Calcium 9.9 Magnesium 2.4 H Total Bilirubin 0.5 AST 22 ALT 30 Alkaline Phosphatase 67 Total Protein 7.4 Albumin 4.2 Triglycerides 50 Cholesterol 161.28 LDL Cholesterol Direct 103 H VLDL Cholesterol 10.0 HDL Cholesterol 46 TSH 0.37 L Free T4 1.09 Free T3 pg/mL 2.77 Qualifiers - * PATIENT BEING DISCHARGED WITH ANY OF THE FOLLOWING DIAGNOSIS: No VTE patient discharged on overlapping Therapy?: No Acute Heart Failure Is this a Heart Failure Patient?: No Plan Discharge Plan: Patient is discharged home today. Time Spent: Less than 30 Minutes
== END 2018-09-16 11:27 | disposition home or self-care (01) ==
LOC: ER 22:47 → INTOOBSV 09-15 05:54 → EH 09-15 05:54 → 4S 09-15 08:22
PROVIDERS: ADMIT Emergency Medicine; ATTEND Emergency Medicine
PROC: HZ31ZZZ Individual Counseling for Substance Abuse Treatment, Behavioral (ICD-10-PCS; principal; 2018-09-15)
DX: T78.3XXA Angioneurotic edema, initial encounter (principal); T46.4X5A Adverse effect of angiotensin-converting-enzyme inhibitors, initial encounter; I10 Essential (primary) hypertension; K21.9 Gastro-esophageal reflux disease without esophagitis; E66.09 Other obesity due to excess calories; F17.210 Nicotine dependence, cigarettes, uncomplicated; Z68.26 Body mass index [BMI] 26.0-26.9, adult; Z79.899 Other long term (current) drug therapy; Z82.49 Family history of ischemic heart disease and other diseases of the circulatory system; Z88.6 Allergy status to analgesic agent; Z91.040 Latex allergy status; Z91.010 Allergy to peanuts; Z91.013 Allergy to seafood; Z88.8 Allergy status to other drugs, medicaments and biological substances; Z91.018 Allergy to other foods
CPT/HCPCS: 99406; 99285; 96374; 96375; 86900; 86901; 36415 ×2; 84439; 36430; 83735 ×2; 84443; 85025 ×2; 80053 ×2; 84481; 83036; 80061; 71045; G0378 ×2; P9017; A9270 ×12; J1200 ×2; J2920; J2930; J3490 ×2; S0028 ×2

== ENCOUNTER 2019-08-12 06:16 | Emergency (ER) | payer MEDICARE, MEDICAID ==
[2019-08-12] MEDS ORDERED: DIPHENHYDRAMINE HCL 50 MG CAPSULE PO ONE (06:49)
[2019-08-12] MEDS ORDERED: PREDNISONE 20 MG TABLET PO ONE (06:49)
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
[2019-08-12 08:29] VITALS: BP 133/90
== END 2019-08-12 08:31 | disposition home or self-care (01) ==
LOC: ER 06:16
DX: T78.40XA Allergy, unspecified, initial encounter (principal); X58.XXXA Exposure to other specified factors, initial encounter; I10 Essential (primary) hypertension; Z79.899 Other long term (current) drug therapy; Z91.013 Allergy to seafood; Z88.8 Allergy status to other drugs, medicaments and biological substances; Z91.018 Allergy to other foods; Z91.040 Latex allergy status; Z91.010 Allergy to peanuts
CPT/HCPCS: 99283; A9270 ×2; J7512